=== PATIENT | male | born 1965 | race Caucasian/White ===

== ENCOUNTER 2019-12-03 17:09 | Emergency (ER) | payer OTHER, SELFPAY ==
--- NOTE | ~2019-12-03 | XR_ITS ---
EXAMINATION: XR foot RT min 3V EXAM DATE: 12/03/2019 18:23 INDICATION: Initial encounter following injury, with pain of the right foot. TECHNIQUE: Right foot dorsoplantar, lateral and oblique projections obtained and reviewed. There is no prior study for comparison. FINDINGS: There is acute closed posttraumatic nondisplaced transverse fracture through the right third proximal phalangeal shaft. There is also probable acute closed posttraumatic nondisplaced fracture through the base of the first proximal phalanx into the metatarsophalangeal joint. Both of these findings have been indicated on e xam. Right metatarsal bones unremarkable. There is mild first metatarsophalangeal primary osteoarthritis and mild hallux valgus. IMPRESSION: 1. Acute right third proximal phalangeal shaft fracture. 2. Probable acute first proximal phalangeal intra-articular fracture. Reviewed, dictated and finalized at location A.
[2019-12-03 17:15] VITALS: BP 114/81; PULSE 90; RESP 18; TEMP 37.2; O2SAT 98
--- NOTE | 2019-12-03 18:10 | ED.LOWEXIN ---
HPI - Extremity Injury (Lower) General Chief Complaint: Extremity Injury, Lower <Jodee Phelan PA-C - Last Filed: 12/03/19 19:09> Stated Complaint: R foot injury <KATRINA Fan Last Filed: 12/03/19 19:09> Time Seen by Provider: 12/03/19 17:42 <KATRINA Fan Last Filed: 12/03/19 19:09> Source: patient <KATRINA Fan Last Filed: 12/03/19 19:09> Mode of arrival: ambulatory <KATRINA Fan Last Filed: 12/03/19 19:09> Limitations: no limitations <KATRINA Fan Last Filed: 12/03/19 19:09> History of Present Illness HPI Narrative: This is a 54 year old male that presents to the ER for right foot injury sustained this morning. Reports he got his foot crushed between a metal object at work. Reports he finished the job before coming to be seen. He did take some Ibuprofen prior to arrival. Denies decreased ROM or numbness. <KATRINA Fan Last Filed: 12/03/19 19:09> Related Data Home Medications: Home Medications Medication Instructions Recorded Confirmed cholestyramine (with sugar) DAILY 12/03/19 olanzapine mg DAILY 12/03/19 oxcarbazepine [Trileptal] 150 mg PO BID 12/03/19 sertraline mg DAILY 12/03/19 <KATRINA Fan Last Filed: 12/03/19 19:09> Allergies/Adverse Reactions: Allergies Allergy/AdvReac Type Severity Reaction Status Date / Time No Known Drug Allergies Allergy Unknown Unknown Verified 12/03/19 17:26 <KATRINA Fan Last Filed: 12/03/19 19:09> Review of Systems Review of Systems: Narrative: CONSTITUTIONAL: Denies fever MUSCULOSKELETAL: Reports joint pain, and myalgia. NEUROLOGIC: Denies numbness <KATRINA Fan Last Filed: 12/03/19 19:09> All systems reviewed & are unremarkable except as noted in HPI and below <Jodee Phelan PA-C - Last Filed: 12/03/19 19:09> [facility] Past Medical History Medical History: Medical History (Updated 12/03/19 @ 19:07 by Jodee Phelan PA-C) History of bipolar disorder <Jodee Phelan PA-C - Last Filed: 12/03/19 19:09> Family History Family History: Family History (Updated 11/07/11 @ 13:48 by DOCTOR UNKNOWN) Other Family history of gallbladder disease <Jodee Phelan PA-C - Last Filed: 12/03/19 19:09> Social History Social History: Social History Smoking status: Never smoker Alcohol intake: never Gender identity (if verbalized by the patient): Male <Jodee Phelan PA-C - Last Filed: 12/03/19 19:09> Exam Narrative: Exam Narrative: GENERAL: Well-appearing, well-nourished, and in no acute distress. HEAD: Normocephalic, atraumatic. EYES: EOMI. EXTREMITIES: Normal range of motion. Moderate edema and bruising to the right forefoot including the toes. Normal DP pulses, normal sensation SKIN: Warm, dry, no rash. NEURO: No focal deficits. Alert and oriented x3. PSYCH: Normal mood and affect <Jodee Phelan PA-C - Last Filed: 12/03/19 19:09> Course Vital Signs Vital signs: Vital Signs Temperature 99 F 12/03/19 17:15 Pulse Rate 90 12/03/19 17:15 Respiratory Rate 18 12/03/19 17:15 Blood Pressure 114/81 12/03/19 17:15 Pulse Oximetry 98 12/03/19 17:15 Temperature 99 F 12/03/19 17:15 Pulse Rate 90 12/03/19 17:15 Respiratory Rate 18 12/03/19 17:15 Blood Pressure 114/81 12/03/19 17:15 Pulse Oximetry 98 12/03/19 17:15 <Jodee Phelan PA-C - Last Filed: 12/03/19 19:09> Vital Signs Temperature 99 F 12/03/19 17:15 Pulse Rate 90 12/03/19 17:15 Respiratory Rate 18 12/03/19 17:15 Blood Pressure 114/81 12/03/19 17:15 Pulse Oximetry 98 12/03/19 17:15 Temperature 99 F 12/03/19 17:15 Pulse Rate 90 12/03/19 17:15 Respiratory Rate 18 12/03/19 17:15 Blood Pressure 114/81 12/03/19 17:15 Pulse Oximetry 98 12/03/19 17:15 <Rosa Toledo MD - Last Filed: 12/03/19 20:02> MDM - Extremity Injury (Lower)
== END 2019-12-03 19:35 | disposition home or self-care (01) ==
PROVIDERS: Emergency Provider Emergency Medicine; PCP Internal Medicine
DX: S92.501A Displaced unspecified fracture of right lesser toe(s), initial encounter for closed fracture (principal); S92.414A Nondisplaced fracture of proximal phalanx of right great toe, initial encounter for closed fracture; F31.9 Bipolar disorder, unspecified; W23.0XXA Caught, crushed, jammed, or pinched between moving objects, initial encounter
CPT/HCPCS: 73630; 99284

== ENCOUNTER 2020-10-14 08:36 | Emergency (ER) | payer OTHER, SELFPAY ==
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
[2020-10-14 08:47] VITALS: BP 116/77; PULSE 55; RESP 20; TEMP 36.4; O2SAT 100
== END 2020-10-14 09:32 | disposition home or self-care (01) ==
PROVIDERS: Emergency Provider Nurse Practitioner; PCP Internal Medicine
DX: M25.462 Effusion, left knee (principal); S81.032A Puncture wound without foreign body, left knee, initial encounter; V18.4XXA Pedal cycle driver injured in noncollision transport accident in traffic accident, initial encounter; F31.9 Bipolar disorder, unspecified
CPT/HCPCS: 73562; 99213; G0463

== ENCOUNTER 2021-07-13 18:46 | Emergency (ER) | payer OTHER, SELFPAY ==
--- NOTE | ~2021-07-13 | XR_ITS ---
EXAMINATION: XR chest 1V portable DATE: 07/13/2021 19:03 INDICATION: Cough and shortness of breath TECHNIQUE: frontal view of the chest was obtained. COMPARISON: Chest radiograph dated 01/23/2016 FINDINGS: The lungs remain clear with no focal airspace opacities, pulmonary edema, pleural effusion or pneumot horax. The cardiomediastinal silhouette is normal. Visualized bones and soft tissues are unremarkable . IMPRESSION: 1. No acute cardiopulmonary disease. Reviewed, dictated and finalized at location H. [employer]
[2021-07-13 18:47] VITALS: BP 117/72; PULSE 93; RESP 18; TEMP 36.6; O2SAT 98
[2021-07-13 19:31] LABS: Basophils Absolute Auto 0.1 K/mm3 (0.0-0.1); Basophils Percent Auto 0.8 % (0.2-1.2); Eosinophils Absolute Auto 0.3 K/mm3 (0-0.3); Eosinophils Percent Auto 5.3 % (0-4.4); Hematocrit 39.3 % (42.0-52.0); Hemoglobin 13.4 g/dL (14.0-18.0); Immature Granulocyte Absolute 0.01 K/mm3 (0.00-0.031); Immature Granulocyte Percent A 0.2 % (0-0.5); Lymphocytes Absolute Auto 0.69 K/mm3 (0.9-3.2); Lymphocytes Percent Auto 10.8 % (18.3-44.2); Mean Corpuscular HGB Conc 34.1 g/dl (32-36); Mean Corpuscular Hemoglobin 31.1 pg (26-34); Mean Corpuscular Volume 91.2 fl (80-100); Mean Platelet Volume 8.2 fl (7.4-10.4); Monocytes Absolute Auto 0.6 K/mm3 (0.1-0.6); Neutrophils Absolute Auto 4.7 K/mm3 (1.3-6.7); Neutrophils Percent Auto 72.9 % (45.5-73.1); Platelet Count Result 183 k/mm3 (150-375); Red Blood Count 4.31 M/mm3 (4.6-6.20); Red Cell Distribution Width 12.7 % (11.5-14.5); White Blood Count 6.4 K/mm3 (4.5-10.0)
--- NOTE | 2021-07-13 19:41 | ED.GENADULT ---
HPI - General Adult General Chief complaint: Upper Respiratory Infection Stated complaint: nasal and chest congestion Time Seen by Provider: 07/13/21 19:02 Source: patient and RN notes reviewed History of Present Illness HPI narrative: Patient is a 56 y/o male complaining of nasal congestion and cough since 2 days. He is coughing up some mucous. He has wheezing sometimes. He states that he took Robitussin DM, which helps with his symptoms. He has no fever or chill. He has some bodyache. Related Data Home Medications Medication Instructions Recorded Confirmed cholestyramine (with sugar) DAILY 12/03/19 12/01/20 olanzapine mg DAILY 12/03/19 12/01/20 oxcarbazepine [Trileptal] 150 mg PO BID 12/03/19 12/01/20 sertraline mg DAILY 12/03/19 12/01/20 Allergies Allergy/AdvReac Type Severity Reaction Status Date / Time No Known Drug Allergies Allergy Unknown Unknown Verified 12/03/19 17:26 Review of Systems Constitutional: Constitutional: Denies chills, Denies fever(s), Denies headache(s) and Denies weakness Eyes: Eyes: Denies blurry vision ENT: Denies headache(s), Reports nasal congestion, Reports nasal discharge and Denies neck pain Cardiovascular: Cardiovascular: Denies chest pain and Denies dyspnea Respiratory: Respiratory: Reports cough and Denies dyspnea Gastrointestinal: Gastrointestinal: Denies abdominal pain, Denies diarrhea, Denies nausea and Denies vomiting Genitourinary: Genitourinary: Denies hematuria and Denies dysuria Musculoskeletal: Musculoskeletal: Denies back pain, Reports myalgias and Denies neck pain Neurologic: Denies headache(s) and Denies weakness [facility] Past Medical History Medical History BMI 24.0-24.9, adult History of bipolar disorder Surgical History Surgical History Hx of cholecystectomy 2012 Tibia fracture 2014-[facility] Family History Family History Mother Cancer Other Family history of gallbladder disease Social History Social History Smoking status: Never smoker Alcohol intake: current Additional living arrangements comments: -Lisha Additional occupation/education comments: [employer] Gender identity (if verbalized by the patient): Male Exam Const: General: no acute distress and well developed Orientation/consciousness: oriented to person, oriented to place, oriented to time and patient oriented x3 HENMT: Head: normocephalic Ears: external ears normal General nose exam: Normal external nose present Eyes: General: appearance normal, both eyes and all related structures Conjunctivae: conjunctivae normal Neck: Neck: normal visual inspection and full ROM Chest: Chest palpation & inspection: normal inspection of the chest and no tenderness Resp: Effort & Inspection: normal respiratory effort Auscultation: clear to auscultation bilaterally Cardio: Rate: regular rate Rhythm: regular rhythm GI: GI Palp: No abdominal tenderness and Yes Soft to palpation Skin: General skin exam: normal color and turgor normal Neuro: General: oriented to person, oriented to place, oriented to time and patient oriented x3 Cognition (Neuro): normal cognition Extrem: General: normal to inspection, full ROM and no pedal edema Psych: Appearance: grossly normal Mental Status: mental status grossly normal Affect: normal affect Course Vital Signs Vital signs: Vital Signs Temperature 36.6 C 07/13/21 18:47 Pulse Rate 93 07/13/21 18:47 Respiratory Rate 18 07/13/21 18:47 Blood Pressure 117/72 07/13/21 18:47 Pulse Oximetry 98 07/13/21 18:47 Temperature 36.6 C 07/13/21 18:47 Pulse Rate 93 07/13/21 18:47 Respiratory Rate 18 07/13/21 18:47 Blood Pressure 117/72 07/13/21 18:47 Pulse Oximetry 98 07/13/21 18:47
[2021-07-13 19:46] LABS: Alanine Aminotransferase 23 U/L (4-50); Albumin Level 4.5 g/dL (3.5-5.1); Alkaline Phosphatase 68 U/L (38-126); Anion Gap 8 mmol/L (8-16); Aspartate Amino Transferase 36 U/L (17-59); Bilirubin,Total 0.5 mg/dL (0.2-1.3); Blood Urea Nitrogen 12 mg/dL (9-20); Calcium 9.1 mg/dL (8.4-10.2); Carbon Dioxide 24 mmol/L (22-30); Chloride 101 mmol/L (98-107); Estimated CRCL calculation 84 ml/min; Estimated Glomerular Filt Rate > 60; Glucose 111 mg/dL (65-110); Potassium 4.2 mmol/L (3.4-5.0); Sodium 133 mmol/L (137-145)
[2021-07-14 02:05] LABS: SARS-CoV-2 RNA PCR Negative
== END 2021-07-13 20:41 | disposition home or self-care (01) ==
PROVIDERS: Emergency Provider Emergency Medicine; PCP Internal Medicine
DX: J06.9 Acute upper respiratory infection, unspecified (principal); Z20.822 Contact with and (suspected) exposure to COVID-19; F31.9 Bipolar disorder, unspecified
CPT/HCPCS: 36415; 71045; 80053; 85025; 87804; 99283; C9803; U0003; U0005

== ENCOUNTER 2021-10-08 14:02 | Emergency (ER) | payer OTHER, SELFPAY ==
[2021-10-08 14:15] VITALS: BP 105/74; PULSE 64; RESP 16; TEMP 36.4; O2SAT 98
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
== END 2021-10-08 15:06 | disposition home or self-care (01) ==
PROVIDERS: Emergency Provider Registered Nurse; PCP Internal Medicine
DX: S81.801A Unspecified open wound, right lower leg, initial encounter (principal); V18.4XXA Pedal cycle driver injured in noncollision transport accident in traffic accident, initial encounter; F31.9 Bipolar disorder, unspecified
CPT/HCPCS: 99213; G0463

== ENCOUNTER 2025-02-25 16:57 | Emergency (ER) | payer BC, SELFPAY ==
[2025-02-25] VITALS (21 sets, daily range): BP systolic 111–136; BP diastolic 67–110; PULSE 52–115; RESP 10–25; TEMP 36.6; O2SAT 96–100
--- NOTE | ~2025-02-25 | XR_ITS ---
CHEST RADIOGRAPH CLINICAL HISTORY: palpitations . COMPARISON: 07/13/2021 TECHNIQUE: Single portable view of the chest. FINDINGS The cardiomediastinal silhouette is unremarkable. The lungs are clear. IMPRESSION: No focal infiltrate or effusion. Reviewed, dictated and finalized at location A.
--- NOTE | 2025-02-25 16:59 | ECG_ITS ---
Test Date: 2025-02-25 17:03:57 Measurements Intervals Perry Rate: 99 P: 0 VT: 0 QRS: 63 QRSD: 111 T: 44 QT: 351 QTc: 450 Interpretive Statements ATRIAL FIBRILLATION INCOMPLETE RIGHT BUNDLE BRANCH BLOCK BASELINE ARTIFACT- II, III, AVR, AVL, AVF, V1 ABNORMAL ECG No previous ECG available for comparison Electronically Signed On 02-25-2025 17:35:30 CDT by Alexandro Luong D.O.
[2025-02-25 17:29] LABS: Hematocrit 37.4 % (42.0-52.0); Hemoglobin 12.8 g/dL (14.0-18.0); Immature Granulocyte Percent A 0.2 % (0-0.5); Lymphocytes Absolute Auto 0.81 K/mm3 (0.9-3.2); Mean Corpuscular HGB Conc 34.2 g/dl (32-36); Mean Corpuscular Hemoglobin 29.9 pg (26-34); Mean Corpuscular Volume 87.4 fl (80-100); Nucleated Red Blood Cells Absolute Auto 0.000 K/mm3 (0.0-0.012); Nucleated Red Blood Cells Perc 0.0 % (0.0-0.2); Platelet Count Result 171 k/mm3 (150-375); Red Blood Count 4.28 M/mm3 (4.6-6.20); White Blood Count 4.9 K/mm3 (4.5-10.0)
[2025-02-25 17:44] LABS: Alanine Aminotransferase 23 U/L (6-50); Albumin Level 4.5 g/dL (3.5-5.1); Alkaline Phosphatase 94 U/L (38-126); Anion Gap 7 mmol/L (4-12); Aspartate Amino Transferase 35 U/L (17-59); Bilirubin,Total 0.6 mg/dL (0.2-1.3); Blood Urea Nitrogen 20 mg/dL (9-20); Calcium 9.3 mg/dL (8.4-10.2); Carbon Dioxide 23 mmol/L (22-30); Chloride 103 mmol/L (98-107); Estimated CRCL calculation 102 ml/min; Estimated Glomerular Filt Rate > 60; Glucose 122 mg/dL (65-110); INR 1.2; Lipase 66 U/L (23-300); Potassium 3.7 mmol/L (3.4-5.0); Prothrombin Time 15.3 Seconds (11.1-14.7); Sodium 133 mmol/L (137-145); Total Protein 7.2 g/dL (6.3-8.2)
[2025-02-25 17:45] LABS: Partial Thromboplastin Time 28.7 Seconds (22.3-36.8)
[2025-02-25 17:54] LABS: Troponin I < 0.012 ng/mL (0.000-0.034)
--- NOTE | 2025-02-25 19:03 | ED_ITS ---
HPI - Arrhythmia/Palpitations General Chief Complaint: Arrhythmia/Palpitations Stated Complaint: afib Time Seen by Provider: 02/25/25 18:20 History of Present Illness HPI narrative: 59-year-old male with a history of bipolar disorder and recent diagnosis of AFib presents to the emergency department for palpitations that occurred around 3:30 p.m.. Patient states he was driving his car when he began to feel his heart ?beating out of my chest?, tingling throughout his body, lightheaded and the sensation that he might pass out. Patient is unsure if he fully lost consciousness but does believe he was nodding off. He pulled over the car and contacted 911. Upon PD and EMS arrival patient had multiple EKGs performed which showed AFib with RVR with rate between 127 to 137bpm. The patient denies any associated chest pain or shortness of breath. During my evaluation the patient states his symptoms have resolved. He is found to be in NSR with rates of 60-70bpm on the cardiac care nurse. He notes he was recently diagnosed with AFib on an EKG that was obtained prior to a endoscopy a couple weeks ago. He was referred to his PCP and had an outpatient Holter monitor which reportedly showed that the patient was in AFib 47% of the time and had heart rates ranging from 37 bpm to 188 bpm. The patient states he had a similar episode of palpitations previously and believes that his symptoms are exacerbated after he uses marijuana. He does state that he use marijuana just prior to symptoms starting today. He notes that he drinks 2 cups of coffee a day. The patient notes her is an avid biker and very active. States his heart rate normally 50-60 beats per minute. He denies other cardiac history. The patient is not on any rate control medications but just started Eliquis prescribed by his PCP today. He is scheduled to see a grinder chipper, Dr. Godinez, in 2 weeks. Related Data Home Medications ?Medication ?Instructions ?Recorded ?Confirmed ?Last Taken ?Type cholestyramine (with sugar) 4 gram DAILY 12/03/19 10/18/22 Unknown History powder for susp in a packet olanzapine 2.5 mg tablet mg DAILY 12/03/19 10/18/22 Unknown History oxcarbazepine 150 mg tablet 150 mg PO BID 12/03/19 10/18/22 Unknown History (Trileptal) sertraline 100 mg tablet mg DAILY 12/03/19 10/18/22 Unknown History Allergies Allergy/AdvReac Type Severity Reaction Status Date / Time No Known Drug Allergies Allergy Unknown Unknown Verified 02/25/25 17:06 Review of Systems 2 Review of Systems: All systems reviewed & are unremarkable except as noted in HPI and below PMFSH Past Medical History Medical History Impingement syndrome, shoulder, left 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 BMI 24.0-24.9, adult History of bipolar disorder Surgical History Surgical History Tibia fracture 2015-[facility] Hx of cholecystectomy 2012 Family History Family History Mother Cancer Other Family history of gallbladder disease Social History Social History Smoking status: Never smoker Alcohol intake: current Living arrangements: with family Additional living arrangements comments: -Lisha Occupation/Education: occupation Additional occupation/education comments: [employer] Gender identity (if verbalized by the patient): Male Exam 2 Narrative: GENERAL: Well-appearing, well-nourished, and in no acute distress. HEAD: Normocephalic, atraumatic. EYES: EOMI. ENT: Nares clear, no rhinorrhea or epistaxis. Mucous membranes moist. NECK: Supple. CHEST: Clear to auscultation. No respiratory distress. HEART: Regular rate and rhythm. No murmur heard. Normal peripheral pulses. Pt in NSR with HR between 60-70bpm ABDOMEN: Soft, nontender, nondistended, normal active bowel sounds. EXTREMITIES: Normal range of motion. No edema. SKIN: Warm, dry, no rash. NEURO: No focal deficits. Alert and oriented x3 Course Vital Signs Vital signs: Vital Signs Temperature 97.9 F 02/25/25 17:03 Pulse Rate 94 02/25/25 17:03 Respiratory Rate 18 02/25/25 17:03 Blood Pressure 136/110 H 02/25/25 17:03 Pulse Oximetry 99 02/25/25 17:03 Oxygen Delivery Room Air 02/25/25 17:03 Temperature 97.9 F 02/25/25 17:03 Pulse Rate 115 H 02/25/25 20:18 Respiratory Rate 19 02/25/25 18:03 Blood Pressure 119/86 02/25/25 18:03 Pulse Oximetry 98 02/25/25 18:03 Oxygen Delivery Room Air 02/25/25 17:03 MDM - Arrhythmia/Palpitations MDM Narrative Medical decision making narrative: 59-year-old male with a history of bipolar disorder and recent diagnosis of AFib presents to the emergency department for an episode of palpitations, lightheadedness and presyncope. Patient contacted EMS and several EKGs performed which revealed AFib with RVR with rates between 127-135bpms. Upon arrival she the emergency department patient's EKG shows atrial fibrillation with a rate of 99 beats per minute with no ST elevations or depressions. On my evaluation the patient states his symptoms have resolved. It is noted on the cardiac care nurse the patient is in normal sinus rhythm with rates between 60-70 bpm. Patient's CBC shows no leukocytosis. Hemoglobin is 12.8, most prior hemoglobin in 2020 was 13.4. Chemistries are unremarkable with no significant electrolyte derangements. Magnesium normal. Chest x-ray shows no focal infiltrate or effusion. Troponin x2 is undetectable. Patient went back into AFib with RVR with a rate in the 130s. I did contact Cardiology, Dr. Bullard, who advise 5 mg of IV metoprolol and if patient's rate improves, can discharged home with metoprolol tartrate 50 mg b.i.d. for home with close follow-up outpatient in their office. Pt was given 5 mg IV metoprolol and a L of fluids. He did become rate controlled. He remains in AFib/a flutter with rates in the 60s bpm. BP remains stable. On re-evaluation he states he feels much better and that sx have resolved.Shared decision making regarding disposition. I did discuss admission for observation given history of unstable arrhythmia and syncopal/near syncopal event. Patient declines admission and states he wants to go home. I discussed concerns of persistent unstable rhythm including syncope, ischemic CVA, cardiac event etc. Pt reports he understands these risks and would still like to go home. He agrees to f/u closely with the cardiology office. Advised to contact the office tomorrow to schedule close follow-up. Will send metoprolol tartrate 50 mg b.i.d. for home. I discussed strict ED return precautions. Patient and his family at bedside are agreeable with the plan verbalized understanding. Discharged in stable condition. Lab Data 02/25/25 17:23 02/25/25 17:23 Labs: Lab Results 02/25/25 02/25/25 02/25/25 Range/Units 17:23 17:23 19:49 WBC 4.9 (4.5-10.0) K/mm3 RBC 4.28 L (4.6-6.20) M/mm3 Hgb 12.8 L (14.0-18.0) g/dL Hct 37.4 L (42.0-52.0) % MCV 87.4 (80-100) fl MCH 29.9 (26-34) pg MCHC 34.2 (32-36) g/dl RDW 12.8 (11.5-14.5) % Plt Count 171 (150-375) k/mm3 MPV 8.2 (7.4-10.4) fl Immature Gran % (Auto) 0.2 (0-0.5) % Neut % (Auto) 70.1 (45.5-73.1) % Lymph % (Auto) 16.7 L (18.3-44.2) % [place] % (Auto) 10.1 H (2.6-8.5) % Eos % (Auto) 2.1 (0-4.4) % Baso % (Auto) 0.8 (0.2-1.2) % Lymph # (Auto) 0.81 L (0.9-3.2) K/mm3 [place] # (Auto) 0.5 (0.1-0.6) K/mm3 Eos # (Auto) 0.1 (0-0.3) K/mm3 Baso # (Auto) 0.0 (0.0-0.1) K/mm3 Abs Immat Gran (auto) 0.01 (0.00-0.031) K/mm3 Absolute Neuts (auto) 3.4 (1.3-6.7) K/mm3 Absolute Nucleated RBC 0.000 (0.0-0.012) K/mm3 Nucleated RBC % 0.0 (0.0-0.2) % PT 15.3 H (11.1-14.7) Seconds INR 1.2 APTT 28.7 (22.3-36.8) Seconds Sodium 133 L (137-145) mmol/L Potassium 3.7 (3.4-5.0) mmol/L Chloride 103 (98-107) mmol/L Carbon Dioxide 23 (22-30) mmol/L Anion Gap 7 (4-12) mmol/L BUN 20 (9-20) mg/dL Creatinine 0.78 (0.7-1.3) mg/dL Estim Creat Clear Calc 102 ml/min Estimated GFR > 60 (59 - ) Glucose 122 H (65-110) mg/dL Calcium 9.3 (8.4-10.2) mg/dL Magnesium 2.0 2.1 (1.6-2.3) mg/dL Total Bilirubin 0.6 (0.2-1.3) mg/dL AST 35 (17-59) U/L ALT 23 (6-50) U/L Alkaline Phosphatase 94 (38-126) U/L Troponin I < 0.012 < 0.012 (0.000-0.034) ng/mL Total Protein 7.2 (6.3-8.2) g/dL Albumin 4.5 (3.5-5.1) g/dL Lipase 66 (23-300) U/L Discharge Plan Discharge Clinical Impression: Atrial fibrillation with RVR Patient Disposition: Home Condition: Stable Instructions: Antibiotic Form, A-fib (Atrial Fibrillation) (ED) Additional Instructions: Please start taking the metoprolol twice daily along with your Eliquis. Follow- up closely with grinder chipper tomorrow. Return to the emergency department if you develop lightheadedness, loss of consciousness, chest pain, shortness of breath or other concerning symptoms. Patient Language: [place] Prescriptions: New metoprolol tartrate 50 mg tablet 50 mg PO Q12H Qty: 60 0RF No Action oxcarbazepine [Trileptal] 150 mg Tablet 150 mg PO BID sertraline 100 mg tablet DAILY olanzapine 2.5 mg tablet DAILY cholestyramine (with sugar) 4 gram Powder In Packet DAILY Follow-up/Referrals: Rhys Godinez MD [Physician] - PHYSICIAN NOT ON STAFF,NONSTAFF [Primary Care Provider] -
--- OUTSIDE RECORDS SUMMARY | 2025-02-25 19:03 | XMS_ITS | Referral Summary ---
Author Organization [facility] Address [address] [place] [address] Care Team Providers Care Mac Operator Name Role Phone Aditya Nguyen FEEDER CATCHER Primary Care Provider Encounters Date Type Department Care Team Description 02/26/20 25 Telephone [facility] Primary Care at [address] [place] [phone] Aditya Nguyen, LIDA Med Refill 02/26/20 25 Orders Only [facility] Primary Care at [address] [place] [phone] Aditya Nguyen, FEEDER CATCHER 02/25/20 25 Results Follow-Up [facility] Primary Care at [address] [place] [phone] Aditya Nguyen, LIDA [facility] Mobile Cardiac Telemetry Event Monitor 02/25/20 25 Telephone [facility] Primary Care at [address] [place] [address] Aditya Nguyen, LIDA Test Results 02/24/20 25 Orders Only [facility] Gastroenterology at [address] [place] [phone] Michele Mauro, DO 02/22/20 25 Telephone [facility] Gastroenterology at [place] [address] [facility] [address] [place] [phone] Gi Howard LPN 02/21/20 25 Telephone [facility] Primary Care at [address] [place] [phone] Aditya Nguyen, LIDA Medical Question/Miscellaneous 02/19/20 25 Telephone [facility] Primary Care at [address] [place] [phone] Aditya Nguyen, LIDA Medical Question/Miscellaneous 02/14/20 12:47 PM CDT - 02/14/20 11:59 PM CDT Hospital Encounter [facility] Cardiology [address] [place] [address] 1st degree AV block; Irregular heart rhythm Discharge Disposition: Discharge to home or self care 02/08/20 25 Telephone [facility] Primary Care at [address] [phone] Aditya Nguyen, LIDA Medical Question/Miscellaneous 02/07/20 Orders Only [facility] Primary Care at [address] [phone] Aditya Nguyen, LIDA 1st degree AV block; Irregular heart rhythm 02/07/20 11:00 AM CDT Office Visit [facility] Primary Care at [address] [phone] Aditya Nguyen, LIDA Heart block AV first degree (Primary Dx); Eosinophilic esophagitis; Body mass index (BMI) of 23.0 to 23.9 in adult; Hypertension, essential 02/04/20 25 Nurse Triage [facility] [address] [place] [address] [phone] RN 02/04/20 25 Results Follow-Up [facility] Primary Care at [address] [phone] Laquita Hagen, LIDA EGD, ECG 12 lead 02/04/20 12:16 PM CDT Anesthesia Event [address] [address] Tyrone Patterson MD [place], Neal P., WING 02/04/20 12:00 PM CDT - 02/04/20 12:30 PM CDT Surgery [address] [address] Michele Mauro, ESOPHAGOGASTRODUODENOSCOPY BIOPSY 02/04/20 10:44 AM CDT - 02/04/20 1:54 PM CDT Hospital Encounter [address] [address] Michele Mauro, Eosinophilic esophagitis Discharge Disposition: Discharge to home or self care 12/18/19 25 Orders Only [facility] Primary Care at [address] [place] [address] Eleazar Chinchilla MD 11/30/19 25 Telephone [facility] Primary Care at [address] [place] [address] Eleazar Chinchilla MD Med Refill 11/26/19 25 Telephone [facility] Medical [facility] Gastroenterology at [address] [place] [address] Nelda Wade from Last 3 Months Allergies No known active allergies Medications sertraline (ZOLOFT) 100 mg tablet take 1 tablet (100MG) by oral route every day 0 2 Active OXcarbazepine (TRILEPTAL) 300 mg tablet take 1 tablet (300MG) by oral route 2 times every day 0 2 Active OLANZapine (ZyPREXA) 2.5 mg tablet take 2 tablet (5MG) by oral route every day 0 2 Active fluticasone propionate (FLONASE) 50 mcg/actuation nasal spray Administer 1 spray into each nostril daily Active omeprazole (PriLOSEC) 40 mg capsule Take 1 capsule (40 mg total) by mouth 2 (two) times a day before breakfast and dinner 180 capsule 3 5 02/24/20 26 Active apixaban (ELIQUIS) 5 mg tablet Take 1 tablet (5 mg total) by mouth 2 (two) times a day 60 tablet 5 Active omeprazole (PriLOSEC) 40 mg capsule Take 1 capsule (40 mg total) by mouth daily 90 capsule 3 5 02/24/20 25 Discontinu ed(Nicole hein) Active Problems Problem Noted Date Diagnosed Date Body mass index (BMI) of 23.0 to 23.9 in adult 0 02/06/2025 Assessment & Plan (02/06/2025 5:11 PM CDT): Wt Readings from Last 3 Encounters: 02/06/25 82.6 kg (182 lb 1.6 oz) 02/03/25 86.2 kg (190 lb) 10/07/24 85.2 kg (187 lb 14.4 oz) Body mass index is 23.37 kg/m . -Stable, at goal of <30 bmi -Discussed recommendations for exercise at least 30 minutes moderate to vigorous exercise as tolerated most days of the week. (minimum 150 minutes weekly) -Discussed importance of well-balanced diet Normocytic anemia 10/07/2024 Assessment & Plan (10/07/2024 2:00 PM CDT): Lab Results Component Value Date WBC 4.2 10/02/2024 HGB 13.1 (L) 10/02/2024 HCT 39.1 10/02/2024 MCV 90.7 10/02/2024 LABPLAT 229 10/02/2024 Stable Slightly improved from last year Could be 2/2 to hemorrhoids Denies any bleeding Did have an EGD done recently Eosinophilic esophagitis 09/16/2024 Assessment & Plan (02/06/2025 5:11 PM CDT): -chronic, controlled -patient currently takes omeprazole 40 mg daily -Follows with GI -Patient recently underwent EGD which was noted patient to have eosinophilic esophagitis -patient encouraged to continue avoiding trigger foods and remaining upright at least 30 minutes after eating or drinking -Encouraged patient to reach out to GI provider to see if they have any further recommendations for his esophagitis -continue current treatment plan Upper abdominal pain 04/15/2024 Dyspepsia 04/15/2024 Physical exam, annual 10/03/2022 Assessment & Plan (10/07/2024 1:59 PM CDT): Discussed lifestyle modifications, diet and exercise. Routine blood work ordered/reviewed today. Yearly vision and dental examinations. Assessment & Plan (10/05/2023 3:10 PM CDT): Discussed lifestyle modifications, diet and exercise. Routine blood work ordered/reviewed today. Yearly vision and dental examinations. Assessment & Plan (10/03/2022 3:35 PM CDT): Discussed lifestyle modifications, diet and exercise. Routine blood work ordered/reviewed today. Yearly vision and dental examinations. 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): Good response to questran Titrate dose and return prn Family history of colon cancer 07/12/2022 Overview (07/12/2022): Added automatically from request for surgery [id number] Mixed hyperlipidemia 09/13/2017 Assessment & Plan (10/07/2024 2:02 PM CDT): Lab Results Component Value Date CHOL 172 10/02/2024 CHOL 163 10/05/2023 CHOL 233 (H) 09/13/2021 Lab Results Component Value Date HDL 62 10/02/2024 HDL 43 10/05/2023 HDL 75 09/13/2021 Lab Results Component Value Date LDLCALC 91 10/05/2023 LDLCALC 129 09/04/2019 LDLCALC 126 09/03/2018 LDL 94 10/02/2024 LDL 128 (H) 09/13/2021 LDL 143 (H) 09/15/2020 Lab Results Component Value Date TRIG 71 10/02/2024 TRIG 144 10/05/2023 TRIG 187 (H) 09/13/2021 No results found for: POCCHDLR No results found for: POCNONHDL No results found for: POCCHLPL At goal at this time Continue current regimen Yassine, I have reviewed your lab results. We use these results to calculate your ASCVD risk score. This score is based on factors such as your age, gender, race, blood pressure, smoking history, diabetes status, and cholesterol. The ASCVD risk score estimates your risk of having a heart attack or stroke in the next 10 years. The 10-year ASCVD risk score (Adelia SULLIVAN, et al., 2019) is: 4.1% Assessment & Plan (10/05/2023 3:09 PM CDT): Lab Results Component Value Date CHOL 233 (H) 09/13/2021 CHOL 231 (H) 09/15/2020 CHOL 215 (H) 09/04/2019 Lab Results Component Value Date HDL 75 09/13/2021 HDL 59 09/15/2020 HDL 61 09/04/2019 Lab Results Component Value Date LDLCALC 129 09/04/2019 LDLCALC 126 09/03/2018 LDLCALC 182 (H) 08/30/2017 LDL 128 (H) 09/13/2021 LDL 143 (H) 09/15/2020 LDL 126 08/25/2015 Lab Results Component Value Date TRIG 187 (H) 09/13/2021 TRIG 158 (H) 09/15/2020 TRIG 124 09/04/2019 No results found for: POCCHDLR No results found for: POCNONHDL No results found for: POCCHLPL At goal at this time Will recheck lipid panel now Assessment & Plan (10/03/2022 3:35 PM CDT): Lab Results Component Value Date CHOL 233 (H) 09/13/2021 CHOL 231 (H) 09/15/2020 CHOL 215 (H) 09/04/2019 Lab Results Component Value Date HDL 75 09/13/2021 HDL 59 09/15/2020 HDL 61 09/04/2019 Lab Results Component Value Date LDLCALC 129 09/04/2019 LDLCALC 126 09/03/2018 LDLCALC 182 (H) 08/30/2017 LDL 128 (H) 09/13/2021 LDL 143 (H) 09/15/2020 LDL 126 08/25/2015 Lab Results Component Value Date TRIG 187 (H) 09/13/2021 TRIG 158 (H) 09/15/2020 TRIG 124 09/04/2019 No results found for: POCCHDLR No results found for: POCNONHDL No results found for: POCCHLPL At goal at this time Will recheck lipid panel now Diarrhea following gastrointestinal surgery 08/25 Assessment & Plan (07/12/2022 1:15 PM [employer] PORT[employer] DEVELOPER): D 2-10/d Questran in past did help. Possibly ibs or post shin or microscopic.. Questran qid Return with shit list after colooscopy Assessment & Plan (02/21/2022 7:06 PM CDT): Will try to increase cholestyramine use Will get colonoscopy ordered Referral to gi for recommendations Bipolar affective disorder 12/07/2013 Overview (10/26/2016): Bipolar affective Assessment & Plan (10/07/2024 2:04 PM CDT): Following with psychiatry C/w sertraline 100 mg, olanzpine 2.5 mg, oxcarbazepine 300 mg every day Stable and goal Assessment & Plan (10/05/2023 3:09 PM CDT): Following with psychiatry C/w sertraline 100 mg, olanzpine 2.5 mg, oxcarbazepine 300 mg every day Stable and goal Assessment & Plan (10/03/2022 3:34 PM CDT): Following with psychiatry C/w sertraline 100 mg, olanzpine 2.5 mg, oxcarbazepine 300 mg every day Stable and goal Resolved Problems Problem Noted Date Diagnosed Date Resolved Date Tibial plateau fracture, lef t, closed, initial encounter 11/03/2014 09/18/2019 Multiple-type hyperlipidemia 12/07/2013 09/13/2017 Overview (10/27/2016): MIXED HYPERLIPIDEMIA Decreased testosterone level 09/06/2013 09/13/2017 Overview (10/26/2016): Low testosterone Immunizations Immunization Administration Dates Next Due Influenza, Unspecified 10/07/2024(Deferr ed: Patient Refused),10/05/2023(Deferred: Patient Refused),04/24/2022(Deferred: Patient Refused),09/27/2021(Deferred: Patient Refused),07/24/2021(Deferred: Patient Refused),02/21/2021(Deferred: Patient Refused),09/21/2020(Deferred: Patient Refused),07/01/2020(Deferred: Patient Refused),09/18/2019(Deferred: Patient Refused),08/05/2019(Deferred: Patient ill today),04/23/2019(Deferred: Patient Refused),09/17/2018(Deferred: Patient Refused),08/08/2018(Deferred: Patient ill today) Tdap 10/22/2014,04/09/2014 ZOSTER LIVE 09/08/2015 ZOSTER Recombinant 02/21/2022,09/27/2021 Social History Tobacco Use Types Packs/Day Years Used Date Smoking Tobacco: Never Smokeless Tobacco: Never Tobacco Cessation:Counseling Given: Not Answered Alcohol Use Standard Drinks/Week Comments Yes 0 (1 standard drink = 0.6 oz pur e alcohol) AUDIT-C Answer Date Recorded Q1: How often do you have a drink containing alc ohol? Monthly or less 02/06/2025 Q2: How many drinks containi ng alcohol do you have on a typical day when you are drinking? 1 or 2 02/06/2025 Q3: How often do you have si x or more drinks on one occasion? Never 02/06/2025 PHQ-2 Answer Date Recorded PHQ-2 Total Score (If total score is 3 or more points, staff should administer the PHQ-9) 0 02/06/2025 Personal Safety Answer Date Recorded Have you ever been in or are you currently in a harmful physical or emotional relationship or is someone making you feel afraid or unsafe? 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 Gender Identity Not on file Sexual Orientation Not on file Last Filed Vital Signs Vital Sign Reading Time Taken Comments Blood Pressure 117/78 02/06/2025 11:04 AM CDT Pulse 59 02/06/2025 11:04 AM CDT Temperature 36.6 C (97.9 F) 02/03/2025 1:15 PM CDT Respiratory Rate 16 02/06/2025 11:04 AM CDT Oxygen Saturation 98% 02/06/2025 11:04 AM CDT Inhaled Oxygen Concentration - - Weight 82.6 kg (182 lb 1.6 oz) 02/06/2025 11:04 AM CDT Height 188 cm (6' 2.02) 02/06/2025 11:04 AM CDT Body Mass Index 23.37 02/06/2025 11:04 AM CDT Plan of Treatment Not on file Procedures Procedure Name Priority Date/Time Associated Diagnosis Comments MCT - MOBILE CARDIAC TELEMET RY EVENT MONITOR Routine 02/13/2025 12:47 PM CDT 1st degree AV block Irregular heart rhythm ECG 12-LEAD Routine 02/06/2025 11:00 AM CDT Hypertension, essential ECG 12-LEAD Routine 02/03/2025 12:53 PM CDT ESOPHAGOGASTRODUODENOSCOPY BIOPSY 02/03/2025 12:15 PM CDT Eosinophilic esophagitis EGD 02/03/2025 11:03 AM CDT SURGICAL PATHOLOGY STAT 02/03/2025 9:02 AM CDT Eosinophilic esophagitis PSA SCREEN Routine 10/02/2024 10:14 AM CDT COLONOSCOPY 07/15/2022 9:24 AM [employer] DEVELOPER HEPATITIS C SCREENING Routine 01/12/2012 from Last 3 Months or Most Recently Relevant to Health Maintenance Results * MCT Mobile Cardiac Telemetry Event Monitor (02/13/2025 12:47 PM CDT) Anatomical Region Laterality Modality Electrocardiogra phy 02/19/2025 11:5 9 PM CDT Narrative 02/24/2025 10:54 AM CDT [address] [place] [address] EVENT MONITOR Patient Name: RICK FAY L : 1965 Study Date: 02/19/2025 11:59:00 PM Gender: M Tech: Ref Provider: ADITYA NGUYEN Height(Cm): BSA: Weight(Kg): Order Provider: ADITYA NGUYEN PROCEDURES: Event Report: Event Monitor Report. INDICATIONS: I44.0 Atrioventricular block, first degree and I49.9 Cardiac arrhythmia, unspecified. FINDINGS: CONCLUSIONS: 1. Predominant rhythm is normal sinus rhythm with a minimum heart rate of 37 beats per minute in atrial fibrillation and a maximum heart rate of 181 beats per minute also in atrial fib. Atrial fibrillation occurred 47% of the time for a total time of 2 days 15 hours 2 minutes. Atrial fib was controlled 41% of the time, rapid 3% of the time and slow 56% of the time. Sinus rhythm occurred 53% of the time for a total time of 3 days 0 hours 13 minutes. Total monitoring time of 5 days 15 hours 15 minutes. 2. Heart rate and rate variability is appropriate. 3. There were several pauses while in atrial fibrillation and they ranged from 3.1 to 3.8 seconds. All these pauses appeared to be during sleeping hours. Electronically Signed By: Dr Elpidio Romero 02/24/2025 10:06:17 AM CDT Procedure Note Elpidio Romero MD - 02/24/[address] [place] [address] EVENT MONITOR Patient Name: RICK FAY L : 1965 Study Date: 02/19/2025 11:59:00 PM Gender: M Tech: Ref Provider: ADITYA NGUYEN Height(Cm): BSA: Weight(Kg): Order Provider: AIDTYA NGUYEN PROCEDURES: Event Report: Event Monitor Report. INDICATIONS: I44.0 Atrioventricular block, first degree and I49.9 Cardiac arrhythmia,unspecified. FINDINGS: CONCLUSIONS: 1. Predominant rhythm is normal sinus rhythm with a minimum heart rate of37 beats per minute in atrial fibrillation and a maximum heart rate of 181 beats perminute also in atrial fib. Atrial fibrillation occurred 47% of the time for a total time of 2 days 15hours 2 minutes. Atrial fib was controlled 41% of the time, rapid 3% of the time and slow56% of the time. Sinus rhythm occurred 53% of the time for a total time of 3 days 0 hours13 minutes. Total monitoring time of 5 days 15 hours 15 minutes. 2. Heart rate and rate variability is appropriate. 3. There were several pauses while in atrial fibrillation and they rangedfrom 3.1 to 3.8 seconds. All these pauses appeared to be during sleeping hours. Electronically Signed By: Dr Elpidio Romero 02/24/2025 10:06:17 AM CDT Aditya Nguyen NP CV CARDIAC SERVICES PRO CEDURES Final Result * ECG 12 lead (02/06/2025 11:00 AM CDT) 02/06/2025 11:0 0 AM CDT Aditya Nguyen NP ECG ORDERABLES Final R esult * ECG 12 lead (02/03/2025 12:53 PM CDT) 02/03/2025 12:5 3 PM CDT Narrative [facility] - 02/03/2025 3:09 PM CDT Vent Rate: 51 bpm RR Interval: 1174 msec KS Interval: 0 msec QRS Duration: 109 msec QT Interval: 491 msec QTC Interval: 467 msec P-R-T [place]: [address] - 44 - 50 degrees IMPRESSION: ATRIAL FIBRILLATION WITH SLOW VENTRICULAR RESPONSE POSSIBLE INFERIOR MYOCARDIAL INFARCTION , PROBABLY OLD [30 ms Q WAVE IN II/aVF] Peak T-waves. Consider hyperkalemia ABNORMAL RHYTHM ECG Electronically Signed By: Allen Talbot MD us Tyrone Patterson MD ECG ORDERABLES Final Result [facility] * EGD (02/03/2025 11:03 AM CDT) Anatomical Region Laterality Modality Other Narrative Procedure Note Michele Mauro DO - 02/03/2025 11:03 AM CDT [facility] Patient Name: Rick Fay Procedure Date: 02/03/2025 11:03 AM Date of : 1965 Admit Type: Outpatient Age: 59 Gender: Male Attending MD: Michele Mauro , D.O., Room: [facility] ENDOSCOPY ROOM 2 Note Status: Finalized Patient Profile: Refer to note in patient chart for documentation of history and physical. Procedure: Upper GI endoscopy Indications: Follow-up of gastro-esophageal reflux disease, Follow-up of eosinophilic esophagitis Referring MD: Laquita Hagen NP Providers: Michele Mauro D.O. Impression: - Esophageal mucosal changes suggestive of eosinophilic esophagitis. Biopsied. - Small, 3 cm hiatal hernia. - Normal stomach. - Normal examined duodenum. Recommendation: - Await pathology results. - Repeat upper endoscopy (date not yet determined)for surveillance based on pathology results. - Return to primary care physician PRN. Medicines: Monitored Anesthesia Care Complications: No immediate complications. Estimated Blood Loss: Estimated blood loss was minimal. Procedure: Pre-Anesthesia Assessment: - As per anesthesia. The benefits, risks, and alternatives to theprocedure and sedation were discussed and informed consentwas obtained. The scope was passed under direct vision. The Endoscope GIF-H190 [id number] was introduced through the mouth, and advanced to the second partof duodenum. The upper GI endoscopy was accomplished without difficulty. The patient tolerated the procedure well. Findings: Mucosal changes including feline appearance were found in the middle third of the esophagus and in the lower third of the esophagus.Biopsies were taken with a cold forceps for histology. A small, 3 cm hiatal hernia was present. The entire examined stomach was normal. The examined duodenum was normal. Electronically signed by Michele Mauro M.D. Michele Mauro D.O. 02/03/2025 12:44:17 PM Number of Addenda: 0 Note Initiated On: 02/03/2025 11:03 AM Procedure Code(s): --- Professional --- 05653, Esophagogastroduodenoscopy, flexible, transoral; with biopsy, single or multiple --- Technical --- 01653, Esophagogastroduodenoscopy, flexible, transoral; with biopsy, single or multiple Diagnosis Code(s): --- Professional --- K22.89, Other specified disease of esophagus K44.9, Diaphragmatic hernia without obstruction or gangrene K21.9, Gastro-esophageal reflux disease without esophagitis K20.0, Eosinophilic esophagitis --- Technical --- K22.89, Other specified disease of esophagus K44.9, Diaphragmatic hernia without obstruction or gangrene K21.9, Gastro-esophageal reflux disease without esophagitis K20.0, Eosinophilic esophagitis CPT copyright 2022 [employer]. All rights reserved. The codes documented in this report are preliminary and upon operations vocational instructor reviewmay be revised to meet current compliance requirements. Recognized by the [place] [employer] for promoting quality in endoscopy Michele Mauor DO ENDOSCOPY PROCEDURES Final Res ult * Surgical pathology (02/03/2025 9:02 AM CDT) Tissue (Esophageal biopsy) 02/03/2025 12:36 PM CDT Narrative PATHOLOGY [facility] (DOC) - 02/05/2025 10:04 AM CDT EPIC results best viewed via link to PDF [facility] Department of Pathology [address] [place] [address] Note to Patients: This report may contain a detailed description of human tissue sent by a health care provider to the laboratory for pathologic evaluation. The content of this report is essential for diagnosis and may provide important critical findings. This information may be unfamiliar to patients to review without a medical professional present. It is advised that the patient review this report in the presence of a health care provider who can answer questions and explain the details. Final Report Patient Name: RICK FAY Address: [address] [place] [address] Gender: M : 1965 (Age: 59) Service: Gastro Location: [facility] #: [id number] Patient Type: [facility] Taken: 02/03/2025 Received: 02/04/2025 Accessioned: 02/04/2025 Reported: 02/05/2025 Physician(s):Dr. Michele Mauro D.O. Diagnosis: Esophagus, biopsy: - Benign squamous epithelium with focal area of increased intraepithelial eosinophils (up to eight per high-power field). - See microscopic description. Diego Duque M.D. Report Electronically Reviewed and Signed Out By Diego Duque M.D. 02/05/2025 10:04:27 Specimen(s) Received: A: Esophagus Biopsies Microscopic Description: Sections show fragments of benign squamous epithelium. The majority of the fragments show no significant inflammatory infiltrate. Focally, a few of the fragments do appear to be more reactive and shows a a few scattered intraepithelial eosinophils present (up to eight per high-power field). The differential diagnosis includes reflux related changes as well as eosinophilic esophagitis. Clinical and endoscopic correlation is advised. Clinical History: Eosinophilic esophagitis. EGD. Gross Description: The specimen is submitted in a single formalin filled container labeled RICK GLENN and esophagus biopsies. It is 6 freeman tissue fragments between <1 and 1 mm. All in one cassette. Robinson Humphreys R.N., P.A./Latasha Lujan M.D. REPORT IMAGES AND SCANNED DOCUMENTS, IF INCLUDED, ONLY VIEWABLE IN PDF VERSION OF REPORT The performance characteristics of some immunohistochemical stains, fluorescence in-situ hybridization tests and immunophenotyping by flow cytometry cited in this report (if any) were determined by the Surgical Pathology Department at [facility] as part of an ongoing clinical quality manager program and in compliance with federally mandated regulations drawn from the Clinical Laboratory Improvement Act of 1988 (CLIA '88). Some of these tests rely on the use of analyte specific reagents and are subject to specific labeling requirements by the US Food and Drug Administration. Such diagnostic tests may only be performed in a facility that is certified by the Department of Health and Human Services as a high complexity laboratory under CLIA '88. The FDA has determined that such clearance or approval is not necessary. This test is used for clinical purposes. It should not be regarded as investigational or for research. Nevertheless, federal rules concerning the medical use of analyte specific reagents require that the following disclaimer be attached to the report: This test was developed and its performance characteristics determined by the Surgical Pathology Department [facility]. It has not been cleared or approved by the U. S. Food and Drug Administration. Note for decalcified specimens: This assay has not been validated on decalcified tissues. Results should be interpreted with caution given the possibility of false negativity on decalcified specimens us Michele Mauro DO LAB PATHOLOGY ORDERABLES Final Result PATHOLOGY [facility] (DOC) [address] [place] [address] * PSA screen (10/02/2024 10:14 AM CDT) PSA 0.50 < OR = 4.00 ng/mL [facility] Comment: The total PSA value from this assay system is standardized against the WHO standard. The test result will be approximately 20% lower when compared to the equimolar-standardized total PSA (Kalyan Madison). Comparison of serial PSA results should be interpreted with this fact in mind. This test was performed using the Siemens chemiluminescent method. Values obtained from different assay methods cannot be used interchangeably. PSA levels, regardless of value, should not be interpreted as absolute evidence of the presence or absence of disease. 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 Room: [facility] ENDOSCOPY ROOM 2 Note Status: Finalized Patient Profile: Refer to note in patient chart for documentation of history and physical. Procedure: Colonoscopy Indications: Family history of colon cancer in a first-degree relative before age 60 years, Last colonoscopy:September 2016, Chronic diarrhea Referring MD: Yris Foss M.D. Providers: Jon Braun M.D. Impression: - Hemorrhoids found on perianal exam. - The entire examined colon is normal. Biopsied. - The examination was otherwise normal. Recommendation: - Discharge patient to home. - Resume previous diet. - Continue present medications. - Await pathology results. - Repeat colonoscopy in 5 years for surveillance. - Return to primary care physician as previously scheduled. Medicines: Propofol per Anesthesia Complications: No immediate complications. Estimated Blood Loss: Estimated blood loss: none. Procedure: Pre-Anesthesia Assessment: - This assessment was completed [Time ofAssessment] prior to the administration of sedation. The benefits, risks and alternatives of theprocedure and sedation were discussed and informed consentwas obtained. All questions were answered. Please referto the signed informed consent document in the medical record. The bowel preparation used was Miralax via single dose instruction. The bowel preparation used was bisacodyl tablets via single dose instruction.The scope was passed under direct vision. TheColonoscope [id number] was introduced through the anus and advanced to the the cecum, identified by appendiceal orifice and ileocecal valve. The colonoscopy was performed without difficulty. The patient tolerated the procedure well. The qualityof the bowel preparation was excellent. The ileocecal valve, appendiceal orifice, and rectum were photographed. Findings: Hemorrhoids were found on perianal exam. The colon (entire examined portion) appeared normal. Biopsies for histology were taken with a cold forceps from the ascending colon for evaluation of microscopic colitis. Verification of patient identification for the specimen was done by the physician and nurse using the patient's name and date. Estimated blood loss was minimal. The exam was otherwise without abnormality. Electronically signed by Jon Braun M.D. Jon Braun M.D. 07/15/2022 11:08:28 AM Number of Addenda: 0 Note Initiated On: 07/15/2022 9:24 AM Procedure Code(s): --- Professional --- 75886, Colonoscopy, flexible; with biopsy, single or multiple Diagnosis Code(s): --- Professional --- K52.9, Noninfective gastroenteritis and colitis, unspecified Z80.0, Family history of malignant neoplasm of digestive organs K64.9, Unspecified hemorrhoids CPT copyright 2020 [employer]. All rights reserved. The codes documented in this report are preliminary and upon operations vocational instructor reviewmay be revised to meet current compliance requirements. Recognized by the [place] [employer] for promoting quality in endoscopy Jon Braun MD ENDOSCOPY PROCEDURES Final Re sult * HEPATITIS C SCREENING (01/12/2012) HEP C Normal Historical Provider HEALTH MAINTENANCE Final Result from Last 3 Months or Most Recently Relevant to Health Maintenance [place] Advance Directives For more information, please contact: [phone] * Full Code (Latest Code Status on File) Date Activated Date Inactivated Comments 02/03/2025 10:53 AM 02/03/2025 5:59 PM * Full Code Date Activated Date Inactivated Comments 02/03/2025 10:53 AM 02/03/2025 10:53 AM * Full Code Date Activated Date Inactivated Comments 09/09/2024 8:05 AM 09/09/2024 2:16 PM * Full Code Date Activated Date Inactivated Comments 09/09/2024 8:05 AM 09/09/2024 8:05 AM * Full Code Date Activated Date Inactivated Comments 07/15/2022 9:17 AM 07/15/2022 4:10 PM Care Teams Mac Operator Relationship Specialty Start Date End Date Aditya Nguyen, FEEDER CATCHER [address] [place] [address] [address] PCP - General Family Medicine 02/07/25
--- OUTSIDE RECORDS SUMMARY | 2025-02-25 19:04 | XMS_ITS | Encounter Summary ---
Author Organization [facility] Healthcare Address [address] [place] [address] Care Team Providers Care Reptile Farmer Name Role Phone Astrid Hansen CLOTH SPREADER SCREEN PRINTING Primary Care Provider Encounter Details Date Type Department Care Team (Late st Contact Info) Description 02/24/2025 Results Follow-Up [facility] Medical Group Primary Care at [address] [place] [address] Astrid Hansen, LIDA [address] [place] [address] [address] [place] [address] MCT Mobile Cardiac Telemetry Event Monitor Social History Tobacco Use Types Packs/Day Years Used Date Smoking Tobacco: Never Smokeless Tobacco: Never Alcohol Use Standard Drinks/Week Comments Yes 0 [...] on file 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 Pt is aware of results. Pt is agreeable for starting a blood thinner. documented in this encounter Plan of Treatment Not on file documented as of this encounter Visit Diagnoses Not on filedocumented in this encounter Care Teams Reptile Farmer Relationship Specialty Start Date End Date Astrid Hansen NP [address] [place] [address] DR HESS [address] [place] [address] PCP - General Family Medicine 02/07/25 documented as of this encounter
--- OUTSIDE RECORDS SUMMARY | 2025-02-25 19:04 | XMS_ITS | Encounter Summary ---
Author Organization [facility] Healthcare Address [address] [place] [address] Care Team Providers Care Social Media Campaign Manager Name Role Phone Astrid Hansen PRIMING MACHINE OPERATOR Primary Care Provider Reason for Visit * Reason Onset Date Comments Medical Question/Miscellaneous 02/07/2025 Encounter Details Date Type Department Care Team (Late st Contact Info) Description 02/07/2025 Telephone [facility] Medical Group Primary Care at [address] [place] [address] Astrid Hansen, LIDA [address] [place] [address] [address] [place] [address] Medical Question/Miscellaneous Social History Tobacco Use Types Packs/Day Years [...] on file Legal Sex Male 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 Lisha said that she was told by [facility] butch that he could get it sooner if the PCP will reach out to the scheduling department to let them know that they do not have to have pre authorization from their insurance. Does message need to be routed? Yes-Action Needed documented in this encounter Plan of Treatment Not on file documented as of this encounter Visit Diagnoses Not on filedocumented in this encounter Care Teams Social Media Campaign Manager Relationship Specialty Start Date End Date Astrid Hansen NP [address] [place] [address] [address] [place] [address] PCP - General Family Medicine 02/07/25 documented as of this encounter
--- OUTSIDE RECORDS SUMMARY | 2025-02-25 19:04 | XMS_ITS | Encounter Summary ---
Author Organization [facility] Healthcare Address [address] [place] [address] Care Team Providers Care Order Schedule Clerk Name Role Phone Astrid Hansen C D REACTOR OPERATOR Primary Care Provider Reason for Visit * Reason Onset Date Comments Med Refill 02/25/2025 Encounter Details Date Type Department Care Team (Late st Contact Info) Description 02/25/2025 Telephone [facility] Medical Group Primary Care at [address] [place] [address] Astrid Hansen, C D REACTOR OPERATOR [address] [place] [address] [address] [place] [address] Med Refill Social History Tobacco Use Types Packs/Day Years [...] on file 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 New medication Have you had any insurance changes in the last couple months? na How much medication do you have on hand? none Additional Comments: Out of pocket for patient is going to be almost $600 per month. They are needing something less expensive. Does message need to be routed? Yes-Action Needed documented in this encounter Plan of Treatment Not on file documented as of this encounter Visit Diagnoses Not on filedocumented in this encounter Care Teams Order Schedule Clerk Relationship Specialty Start Date End Date Astrid Hansen, C D REACTOR OPERATOR [address] [place] [address] DR HESS [address] [place] [address] PCP - General Family Medicine 02/07/25 documented as of this encounter
--- OUTSIDE RECORDS SUMMARY | 2025-02-25 19:04 | XMS_ITS | Encounter Summary ---
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 Gender Identity Not on file Sexual Orientation Not on file documented as of this encounter Ordered Prescriptions Prescription Sig Dispense Quantity Refills Last Filled Start Date End Date apixaban (ELIQUIS) 5 mg tablet Take 1 tablet (5 mg total) by mouth 2 (two) times a day 60 tablet 02/25/2025 documented in this encounter Plan of Treatment Not on file documented as of this encounter Visit Diagnoses Not on filedocumented in this encounter Care Teams Director Relationship Specialty Start Date End Date Astrid Hansen CHIEF RESOURCE OFFICER [address] [place] [address] DR HESS [address] [place] [address] PCP - General Family Medicine 02/07/25 documented as of this encounter
--- OUTSIDE RECORDS SUMMARY | 2025-02-25 19:04 | XMS_ITS | Encounter Summary ---
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 Gender Identity Not on file Sexual Orientation Not on file documented as of this encounter Miscellaneous Notes * Telephone Encounter - Gi Howard LPN - 02/24/2025 8:31 AM CDT 1st attempt pt picked up the phone and did not respond * Telephone Encounter - Gi Howard LPN - 02/21/2025 2:18 PM CDT Pt spouse Lisha called in for pathology report from previous scope, she stated the pt is still experiencing coughing during meals, abd discomfort , and reflux Please advise documented in this encounter Plan of Treatment Not on file documented as of this encounter Visit Diagnoses Not on filedocumented in this encounter Care Teams Inspector General Relationship Specialty Start Date End Date Astrid Hansen NP [address] [facility] [address] [place] [address] PCP - General Family Medicine 02/07/25 documented as of this encounter
--- OUTSIDE RECORDS SUMMARY | 2025-02-25 19:04 | XMS_ITS | Encounter Summary ---
Author Organization [facility] Healthcare Address [address] [place] [address] Care Team Providers Care Cost And Risk Analysis Manager Name Role Phone Astrid Hansen CELL STRIPPER Primary Care Provider Reason for Visit * Reason Onset Date Comments Test Results 02/24/2025 Encounter Details Date Type Department Care Team (Late st Contact Info) Description 02/24/2025 Telephone [facility] Medical Group Primary Care at [address] [place] [address] Astrid Hansen, CELL STRIPPER [address] [place] [address] [address] [place] [address] Test Results Social History Tobacco Use Types Packs/Day Years [...] on file 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 No Additional Questions/Comments: Results are in. Patient saw results on My Chart and is very upset about what he read. Please call him as soon as possible. There seems to be a lot of A-Fib and he is scared. Does message need to be routed? Yes-Action Needed documented in this encounter Plan of Treatment Not on file documented as of this encounter Visit Diagnoses Not on filedocumented in this encounter Care Teams Cost And Risk Analysis Manager Relationship Specialty Start Date End Date Astrid Hansen CELL STRIPPER [address] [place] [address] DR HESS [address] [place] [address] PCP - General Family Medicine 02/07/25 documented as of this encounter
--- OUTSIDE RECORDS SUMMARY | 2025-02-25 19:04 | XMS_ITS | Clinical Summary ---
Author Organization [facility] Address [address] [place] [address] Care Team Providers Care Transition Rn Name Role Phone Chito Arreola MD Primary Care Provider Unavail able Chito Arreola MD Unavailable Unavailable Source Comments [facility],non-owned Affiliates and Associated Physician Practices is amultiple site organization consisting of ambulatory clinics and hospital sitesin [place], [place], [place] and [place]. This disclosure is being madepursuant to the Care Everywhere program and may not contain all information available regarding this patient. Last updated 18.[facility] Allergies No known active allergies Medications * Be aware that medications may not be up to date on this document. Alwaysverify current medications with the patient. OXCARBAZEPINE ER PO Active SERTRALINE HCL PO Active OLANZAPINE PO Active predniSONE (DELTASONE) 20 MG tabletIndication s:Contact dermatitis due to plants, except food, unspecified contact dermatitis type Take 1 tablet by mouth 2 times daily 14 tablet 8 Active predniSONE (DELTASONE) 20 MG tablet Take 1 tablet by mouth as directed Take 3tabs by mouth once daily for 3days, 2tabs for 3 days, 1tab for 3 days, 1/2 tab for 4days 20 tablet 9 Active triamcinolone acetonide (KENALOG) 0.1 % cream Apply to affected area 2 times daily Do not use on face, neck, or groin 80 g 9 Active Active Problems Problem Noted Date Diagnosed Date 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 Closed displaced bicondylar fracture of tibia Closed displaced bicondylar fracture of left tib ia 11/03/2014 Social History Tobacco Use Types Packs/Day Years Used Date Smoking Tobacco: Never Smokeless Tobacco: Never Alcohol Use Standard Drinks/Week Comments Yes 0 (1 standard drink = 0.6 oz pur e alcohol) Sex and Gender Information Value Date Recorded Sex Assigned at Not on file Legal Sex Male 3:05 PM CDT Gender Identity Not on file Sexual Orientation Not on file Last Filed Vital Signs Vital Sign Reading Time Taken Comments Blood Pressure 112/74 04/02/2019 2:01 PM CDT Pulse 87 04/02/2019 2:01 PM CDT Temperature 36.4 C (97.5 F) 04/02/2019 2:01 PM CDT Respiratory Rate 17 04/02/2019 2:01 PM CDT Oxygen Saturation 97% 12/30/2017 3:17 PM CDT Inhaled Oxygen Concentration - - Weight 90.7 kg (200 lb) 04/02/2019 2:01 PM CDT Height 188 cm (6' 2.02) 04/02/2019 2:01 PM CDT Body Mass Index 25.67 04/02/2019 2:01 PM CDT Plan of Treatment Health Maintenance Due Date Last Done Comments COLOGUARD (AGES 45-75) - COLON CA SCREENING 1965 COLON MONITORING 1965 COLONOSCOPY - COLON CA SCREENING 1965 CT COLONOGRAPHY - COLON CA SCREENING 1965 Colorectal Cancer Screening 1965 FIT - COLON CA SCREENING 1965 FLEX SIG - COLON CA SCREENING 1965 LIPID TESTING 1965 HIV SCREENING 1979 HEPATITIS C SCREENING 04/28/1982 DTAP/TDAP/TD VACCINES (1 - Tdap) 1983 PNEUMOCOCCAL VACCINE 50+ (1 of 1 - PCV) 2014 ZOSTER VACCINE (1 of 2) 2014 SCREENING FOR DIABETES 04/02/2019 5, 11/18/2014, 11/17/2014, Additional history exists COVID-19 VACCINE (1 - 2023- season) 2024 DEPRESSION SCREENING 07/24/2024 INFLUENZA VACCINE (#1) 2025 Respiratory Syncytial Virus (RSV) Vaccine Pt: or over 60 yrs (1 - 1-dose 75+ series) 2039 HEPATITIS B VACCINE Aged Out No longe r eligible based on patient's age to complete this topic HIB VACCINE Aged Out No longer eligi ble based on patient's age to complete this topic HPV VACCINE Aged Out No longer eligi ble based on patient's age to complete this topic MENINGOCOCCAL (Group B) VACCINE SHARED DECISION-MAKING Aged Out No longer eligible based on patient's age to complete this topic MENINGOCOCCAL GROUPS A/C/Y/W VACCINE Aged Out No longer eligible based on patient's age to complete this topic Procedures Procedure Name Priority Date/Time Associated Diagnosis Comments BASIC METABOLIC PANEL (CALCIUM TOTAL) STAT 11/20/2014 12:17 PM CDT from Last 3 Months or Most Recently Relevant to Health Maintenance Results * (ABNORMAL) BASIC METABOLIC PANEL (CALCIUM TOTAL) (11/20/2014 12:17 PM CDT) BUN 12 7 - 26 mg/dL [facility] Creatinine 0.7 0.6 - 1.2 mg/dL [facility] Sodium 136 136 - 145 mmol/L [facility] Potassium 4.6(H) 3.5 - 4.5 mmol/L [facility] Chloride 97(L) 98 - 107 mmol/L [facility] CO2 31(H) 22 - 29 mmol/L [facility] Glucose 120(H) 70 - 115 mg/dL [facility] Calcium 9.1 8.4 - 10.2 mg/dL [facility] Anion Gap 13 8 - 18 [facility] BUN/Creatinine Ratio 17 7 - 23 [facility] Osmolality Calculated 269(L) 270 - 300 mOsm/kg [facility] eGFR >60 >60 mL/min/1.7 3 m2 [facility] Blood specimen (specimen) BLOOD SPECIMEN / Unknown 11/20/2014 12:17 PM CDT 11/20/2014 12:17 PM CDT us Shavonne Seo SHOT BLAST EQUIPMENT OPERATOR-DEVELOPMENT COORDINATOR LAB - CHEMISTRY ORDERA BLES Final Result [facility] [address] [phone] from Last 3 Months or Most Recently Relevant to Health Maintenance Insurance [facility] Care Teams Transition Rn Relationship Specialty Start Date End Date Chito Arreola MD PCP - General Internal Medicine 12/30/17 Chito Arreola MD 12/30/17
--- OUTSIDE RECORDS SUMMARY | 2025-02-25 19:04 | XMS_ITS | Encounter Summary ---
Author Organization [facility] Address [address] [place] [address] Phone Care Team Providers Care Welfare Specialist Name Role Phone Chito Arreola MD Primary Care Provider [phone] Ajit Roy Primary Care Provider Yris Foss MD Primary Care Provide r Eleazar Chinchilla MD Primary Care Provider [phone] Astrid Hansen NP Primary Care Provider Encounter Details Date Type Department Care Team (Late st Contact Info) Description 08/30/[address] 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 us Historical Provider LAB BLOOD ORDERABLES Rachel l Result documented in this encounter Visit Diagnoses Not on filedocumented in this encounter Additional Health Concerns Infection Onset Date Last Indicated Resolved Time COVID: Suspected 09/25/2023 09/25/2023 09/25/2023 4:49 PM LANDSCAPER COVID: Suspected 09/25/2023 09/25/2023 09/25/2023 10:31 PM LANDSCAPER Influenza, adult 09/25/2023 09/25/2023 10/02/2023 3:05 AM CDT documented as of this encounter Care Teams Welfare Specialist Relationship Specialty Start Date End Date Chito Arreola MD PCP - General 10/21/16 12/22/21 Ajit Roy PA [address] [facility] [place] [address] PCP - General Internal Medicine 12/23/21 02/17/22 Yris Foss MD [address] [facility] [address] [place] [address] PCP - General Family Medicine 02/18/22 10/02/22 Eleazar Chinchilla MD [address] [facility] [address] [place] [address] PCP - General Family Medicine 10/03/22 02/06/25 Astrid Hansen NP [address] [facility] [address] [place] [address] PCP - General Family Medicine 02/07/25 documented as of this encounter
--- OUTSIDE RECORDS SUMMARY | 2025-02-25 19:04 | XMS_ITS | Clinical Summary ---
Author Organization [facility] Address [address] [place] [address] Care Team Providers Care Audit Clerk Name Role Phone Aditya Nguyen NP Primary Care Provider Allergies No known active allergies Medications sertraline [...] by mouth daily 90 capsule 3 5 08/03/20 25 Discontinu ed(Misavaleriorosalinda te order) Active Problems Problem Noted Date Diagnosed Date [...] (07/12/2022): Added automatically from request for surgery [id number] Assessment & Plan (07/26/2022 1:28 PM PICKLE SORTER): Good response to questran Titrate dose and return prn Family history of colon cancer 07/12/2022 Overview (07/12/2022): Added automatically from request for surgery [id number] Mixed hyperlipidemia 09/13/2017 Assessment & Plan (10/07/2024 [...] 08/25 Assessment & Plan (07/12/2022 1:15 PM PICKLE SORTER): D 2-10/d Questran in past did help. [...] level 09/06/2013 09/13/2017 Overview (10/26/2016): Low testosterone Encounters Date Type Department Care Team Description 02/26/20 25 Telephone [facility] Medical [facility] Primary Care at [address] [place] [address] Aditya Nguyen, BARBER INSTRUCTOR Med Refill 02/26/20 25 Orders Only [facility] Primary Care at [address] [address] Aditya Nguyen, BARBER INSTRUCTOR 02/25/20 25 Results Follow-Up [facility] Primary Care at [address] [address] Aditya Nguyen, BARBER INSTRUCTOR MCT Mobile Cardiac Telemetry Event Monitor 02/25/20 25 Telephone [facility] Primary Care at [address] [address] Aditya Nguyen, BARBER INSTRUCTOR Test Results 02/24/20 25 Orders Only [facility] Gastroenterology at [address] [place] [address] Michele Mauro, 02/22/20 25 Telephone [facility] Gastroenterology at [address] [place] [address] Gi Howard LPN 02/21/20 25 Telephone [facility] Primary Care at [address] [address] Aditya Nguyen, BARBER INSTRUCTOR Medical Question/Miscellaneous 02/19/20 25 Telephone [facility] Primary Care at [address] [address] Aditya Nguyen, BARBER INSTRUCTOR Medical Question/Miscellaneous 02/14/20 25 12:47 PM CDT - 02/14/20 25 11:59 PM CDT Hospital Encounter [facility] Cardiology [address] [place] [address] 1st degree AV block; Irregular heart rhythm Discharge Disposition: Discharge to home or self care 02/08/20 25 Telephone [facility] Primary Care at [address] [address] Aditya Nguyen, BARBER INSTRUCTOR Medical Question/Miscellaneous 02/07/20 25 11:00 AM CDT Office Visit [facility] Primary Care at [address] [address] Aditya Nguyen, LIDA Heart block AV first degree (Primary Dx); Eosinophilic esophagitis; Body mass index (BMI) of 23.0 to 23.9 in adult; Hypertension, essential 02/07/20 Orders Only [facility] Primary Care at [address] [place] [address] Aditya Nguyen, LIDA 1st degree AV block; Irregular heart rhythm 02/04/20 12:16 PM CDT Anesthesia Event [address] [address] Tyrone Patterson MD [place], Neal P., CRNA 02/04/20 12:00 PM CDT - 02/04/20 12:30 PM CDT Surgery [address] [address] Michele Mauro, DO ESOPHAGOGASTRODUODENOSCOPY BIOPSY 02/04/20 10:44 AM CDT - 02/04/20 1:54 PM CDT Hospital Encounter [address] [address] Michele Mauro, DO Eosinophilic esophagitis Discharge Disposition: Discharge to home or self care 02/04/20 Nurse Triage [facility] [address] [place] [address] [phone] RN 02/04/20 Results Follow-Up [facility] Primary Care at [address] [address] Laquita Hagen NP EGD, ECG 12 lead 12/18/19 Orders Only [facility] Primary Care at [address] [address] Eleazar Chinchilla MD 11/30/19 25 Telephone [facility] Primary Care at [address] [address] Eleazar Chinchilla MD Med Refill 11/26/19 Telephone [facility] Gastroenterology at [address] [place] [address] MauroBalbirNelda from Last 3 Months Immunizations Immunization Administration Dates Next Due Influenza, Unspecified 10/07/2024(Deferr ed: Patient Refused),10/05/2023(Deferred: Patient Refused),04/24/2022(Deferred: Patient Refused),09/27/2021(Deferred: Patient Refused),07/24/2021(Deferred: Patient Refused),02/21/2021(Deferred: Patient Refused),09/21/2020(Deferred: Patient Refused),07/01/2020(Deferred: Patient Refused),09/18/2019(Deferred: Patient Refused),08/05/2019(Deferred: Patient ill today),04/23/2019(Deferred: Patient Refused),09/17/2018(Deferred: Patient Refused),08/08/2018(Deferred: Patient ill today) Tdap 10/22/2014,04/09/2014 ZOSTER LIVE 09/08/2015 ZOSTER Recombinant 02/21/2022,09/27/2021 Surgical History Surgery Date Site/Laterality Comments CHOLECYSTECTOMY Cholecystectomy COLONOSCOPY 09/21/2016 - 10/21/2016 UPPER GASTROINTESTINAL ENDOSCOPY 09/09/2024 UPPER GASTROINTESTINAL ENDOSCOPY 02/03/2025 Medical History Medical History Date Comments Osteoarthritis Osteoarthritis OBI (generalized anxiety disorder) HLD (hyperlipidemia) MDD (major depressive disorder) Bipolar 1 disorder (HCC) GERD (gastroesophageal reflux disease) Eosinophilic esophagitis Family History Medical History Relation Name Comments Other Brother 3 Alive and well; 2 sibs ages 50 & 45 with possible HTN and Depression Other Brother 4 Alive and well; Other Father ?stroke; Stroke Father Stroke; Colon cancer Mother Depression Mother Depression; Hypertension Mother Hypertension; Other Mother Alive and well; Other Other colon or breast ca; Other Sister 3 cholecystectomy ; Other Sister 4 Alive and well; Relation Name Status Comments Brother 1 Alive Brother 2 Alive Brother 3 Brother 4 Father Alive Mother Alive Other Sister 1 Alive Sister 2 Alive Sister 3 Sister 4 Social History Tobacco Use Types Packs/Day Years [...] on file Legal Sex Male 9:01 AM PICKLE SORTER Gender Identity Not on file Sexual Orientation Not on file Obstetrics History Last Filed Vital Signs Vital Sign Reading [...] 02/06/2025 11:04 AM CDT Plan of Treatment Health Maintenance Due Date Last Done Comments Hepatitis B Screening 1982 DTaP/Tdap/Td Vaccine (3 - Td or Tdap) 10/22/2024 10/22/2014, 04/09/2014 Influenza Vaccine (#1) 2025 Prostate Cancer Screening-PSA 10/02/2025 10/02/2024, 10/05/2023, 09/13/2021, Additional history exists Regular Well Visit/Exam 18-64 10/07/2025 10/07/2024, 10/05/2023, 10/03/2022, Additional history exists Depression Screening 02/06/2026 02/06/2025, 10/07/2024, 10/05/2023, Additional history exists Colon Cancer Screening-Colonoscopy 07/15/2027 07/15/2022, 09/26/2016, 09/26/2016, Additional history exists Hepatitis C Screening Completed 01/12/2012 Zoster Vaccine Completed 02/21/2022, 0301/2022, 09/08/2015 Colon Cancer Screening-CT Colonography Discontinued 07/15/2022, 09/26/2016, 09/26/2016, Additional history exists Colon Cancer Screening-DNA Stool Discontinued 07/15/2022, 09/26/2016, 09/26/2016, Additional history exists Colon Cancer Screening-FIT Discontinued 07/15, 09/26/2016, 09/26/2016, Additional history exists Colon Cancer Screening-Sigmoidoscopy Discontinued 07/15/2022, 09/26/2016, 09/26/2016, Additional history exists Pneumococcal vaccine <65 Aged Out No longer eligible based on [...] 10:14 AM CDT COLONOSCOPY 07/15/2022 9:24 AM PICKLE SORTER HM HEPATITIS C SCREENING Routine 01/12/2012 from Last 3 Months or Most Recently Relevant to Health Maintenance Results * MCT Mobile Cardiac Telemetry Event Monitor (02/13/2025 12:47 PM CDT) Anatomical Region Laterality Modality Electrocardiogra phy 02/19/2025 11:5 9 PM CDT Narrative 02/24/2025 10:54 AM CDT [address] [place] [address] EVENT MONITOR Patient Name: RICK FAY L [...] Procedure Note Elpidio Romero MD - 02/24/[address] [address] EVENT MONITOR Patient Name: RICK FAY L [...] AM CDT) 02/06/2025 11:0 0 AM CDT us Aditya Nguyen NP ECG ORDERABLES Final R esult * ECG 12 lead (02/03/2025 12:53 PM CDT) 02/03/2025 12:5 3 PM CDT Narrative [facility] - 02/03/2025 3:09 PM CDT Vent Rate: 51 bpm RR Interval: 1174 msec [place] Interval: 0 msec QRS Duration: 109 msec QT Interval: 491 msec QTC Interval: 467 msec P-R-T [place]: [address] - 44 - 50 degrees IMPRESSION: ATRIAL FIBRILLATION WITH SLOW VENTRICULAR RESPONSE POSSIBLE INFERIOR MYOCARDIAL INFARCTION , PROBABLY OLD [30 ms Q WAVE IN II/aVF] Peak T-waves. Consider hyperkalemia ABNORMAL RHYTHM ECG Electronically Signed By: Allen Talbot MD us Tyrone Patterson MD ECG ORDERABLES Final Result [facility] * EGD (02/03/2025 11:03 AM CDT) Anatomical Region Laterality Modality Other Narrative Procedure Note Michele Mauro, - 02/03/2025 11:03 AM CDT [facility] Patient Name: Rick Fay Procedure Date: 02/03/2025 11:03 AM Date of : 1965 Admit Type: Outpatient Age: 59 Gender: Male Attending MD: Marguerite ConnorsOJose, [facility] 2 Note Status: Finalized Patient [...] passed under direct vision. The Endoscope [id number] was introduced through the mouth, and advanced [...] 11:03 AM Procedure Code(s): --- Professional --- 10162, Esophagogastroduodenoscopy, flexible, transoral; with biopsy, single or multiple --- Technical --- 12609, Esophagogastroduodenoscopy, flexible, transoral; with biopsy, single or multiple Diagnosis Code(s): --- Professional --- K22.89, Other specified disease of esophagus K44.9, Diaphragmatic hernia without obstruction or gangrene K21.9, Gastro-esophageal reflux disease without esophagitis K20.0, Eosinophilic esophagitis --- Technical --- K22.89, Other specified disease of esophagus K44.9, Diaphragmatic hernia without obstruction or gangrene K21.9, Gastro-esophageal reflux disease without esophagitis K20.0, Eosinophilic esophagitis CPT copyright 2022 [employer]. All rights reserved. The codes documented in this report are preliminary and upon crusher plant operator reviewmay be revised to meet current compliance requirements. Recognized by the [place] [employer] for promoting quality in endoscopy Michele Mauro DO ENDOSCOPY PROCEDURES Final Res ult * Surgical pathology (02/03/2025 9:02 AM CDT) Tissue (Esophageal biopsy) 02/03/2025 12:36 PM CDT Narrative [facility] - 02/05/2025 10:04 AM CDT EPIC results best viewed via link to PDF [facility] Department of Pathology [address] [place], [place] [id number] Note to Patients: This report may contain [...] Report Patient Name: RICK FAY Address: [address] [place] [address] Gender: M : 1965 (Age: 59) Service: Gastro Location: [facility] Hospital #: [id number] Patient [facility] Taken: 02/03/2025 Received: 02/04/2025 Accessioned: 02/04/2025 Reported: [...] determined by the Surgical Pathology Department at [facility] as part of an ongoing quality lab technician program and in compliance with federally mandated [...] characteristics determined by the Surgical Pathology Department [facility]. It has not been cleared or approved by the U. S. Food and Drug Administration. Note for decalcified specimens: This assay has not been validated on decalcified tissues. Results should be interpreted with caution given the possibility of false negativity on decalcified specimens Michele Mauro DO LAB PATHOLOGY ORDERABLES Final Result Performing Organization Address City/[facility] Co de Phone Number PATHOLOGY [facility]) [address] [place] [phone] * PSA screen (10/02/2024 10:14 AM CDT) PSA 0.50 < OR = 4.00 ng/mL [facility] Comment: The total PSA value from this assay system is standardized against the WHO standard. The test result will be approximately 20% lower when compared to the equimolar-standardized total PSA (Kalyan Locust). Comparison of serial PSA results should be [...] MD LAB BLOOD ORDERABLES Final Resul t Performing Organization Address City/[facility] Co de Phone Number [facility] [address] [place] [address] * COLONOSCOPY (07/15/2022 9:24 AM PICKLE SORTER) Anatomical Region Laterality Modality Other Narrative Procedure Note Jon Braun MD - 07/15/2022 9:[address] [facility] Patient Name: Rick Fay Procedure Date: 07/15/2022 9:24 AM Date of : 1965 Admit Type: Outpatient Age: 57 Gender: Male Attending MD: Jon Braun M.D. Room: [facility] 2 Note Status: Finalized Patient Profile: Refer to note in patient chart for documentation of history and physical. Procedure: Colonoscopy Indications: Family history of colon cancer in a first-degree relative before age 60 years, Last colonoscopy:September 2016, Chronic diarrhea Referring MD: Yirs Foss M.D. Providers: Jon Braun M.D. Impression: [...] scope was passed under direct vision. TheColonoscope [id number] was introduced through the anus and advanced [...] 9:24 AM Procedure Code(s): --- Professional --- 21915, Colonoscopy, flexible; with biopsy, single or multiple Diagnosis Code(s): --- Professional --- K52.9, Noninfective gastroenteritis and colitis, unspecified Z80.0, Family history of malignant neoplasm of digestive organs K64.9, Unspecified hemorrhoids CPT copyright 2020 [employer]. All rights reserved. The codes documented in this report are preliminary and upon crusher plant operator reviewmay be revised to meet current compliance requirements. Recognized by the [place] [employer] for promoting quality [...] Advance Directives For more information, please contact: [phone] * Full Code (Latest Code Status on [...] 9:17 AM 07/15/2022 4:10 PM Care Teams Audit Clerk Relationship Specialty Start Date End Date Aditya Nguyen, BARBER INSTRUCTOR [address] [place] [address] [address] PCP - General Family Medicine 02/07/25
--- OUTSIDE RECORDS SUMMARY | 2025-02-25 19:04 | XMS_ITS | Encounter Summary ---
Author Organization [facility] Healthcare Address [address] [place] [address] Care Team Providers Care Home Staging Specialist Name Role Phone Astrid Hansen FISHER TROT LINE Primary Care Provider Reason for Visit * Reason Onset Date Comments Medical Question/Miscellaneous 02/20/2025 Encounter Details Date Type Department Care Team (Late st Contact Info) Description 02/20/2025 Telephone [facility] Medical Group Primary Care at [address] [place] [address] Astrid Hansen, LIDA [address] [place] [address] [address] [place] [address] Medical Question/Miscellaneous Social History Tobacco [...] on file Legal 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 Please notify patient's when faxed over. They need the order to be able to get scheduled [facility]. Does message need to be routed? Yes-Action Needed * Telephone Encounter - Caitie Miller NP - 02/21/2025 9:17 AM CDT Routed to referrals. Can you help provide this information to the patient? Caitie Miller NP * Telephone Encounter - Divya Wyman - 02/21/2025 9:06 AM CDT Medical Question/Miscellaneous Caller???s Concern: Patient needs to know CPT code for EKG and the exact procedure he's having so she can go somewhere else for the procedure. Does message need to be routed? Yes-Action Needed * Telephone Encounter - Merle Mcmillan - 02/20/2025 11:22 AM CDT Medical Question/Miscellaneous Caller???s Concern: Calling to schedule Transthoracic Echo (TTE) Complete W Doppler/CF Does message need to be routed? No documented in this encounter Plan of Treatment Not on file documented as of this encounter Visit Diagnoses Not on filedocumented in this encounter Care Teams Home Staging Specialist Relationship Specialty Start Date End Date Asrtid Hansen FISHER TROT LINE [address] [place] [address] DR HESS [address] [place] [address] PCP - General Family Medicine 02/07/25 documented as of this encounter
--- NOTE | 2025-02-25 19:11 | ECG_ITS ---
Test Date: 2025-02-25 19:14:49 Measurements Intervals [place] Rate: 68 P: 0 ND: 0 QRS: 52 QRSD: 105 T: 52 QT: 389 QTc: 415 Interpretive Statements ATRIAL FLUTTER/TACHYCARDIA WITH VARIABLE BLOCK INCOMPLETE RIGHT BUNDLE BRANCH BLOCK PEAKED T WAVES- CONSIDER HYPERKALEMIA BASELINE ARTIFACT- II, III, AVR, AVL, AVF, V1-V2 ABNORMAL ECG Compared to ECG 02/25/2025 17:03:57 Atrial fibrillation no longer present Electronically Signed On 02-25-2025 19:40:57 CDT by Alexandro Luong D.O.
[2025-02-25 19:22] LABS: Magnesium 2.0 mg/dL (1.6-2.3)
[2025-02-25] MEDS: SODIUM CHLORIDE 0.9% IV 1,000 ML 999 ML IV CONT (19:33)
[2025-02-25] MEDS: METOPROLOL TARTRATE INJ 5 MG/5 ML VIAL IV PUSH (19:35)
[2025-02-25 19:59] LABS: Magnesium 2.1 mg/dL (1.6-2.3)
[2025-02-25] MEDS: METOPROLOL TARTRATE 50 MG TAB PO (20:18)
[2025-02-25 20:25] LABS: Troponin I < 0.012 ng/mL (0.000-0.034)
== END 2025-02-25 21:12 | disposition home or self-care (01) ==
PROVIDERS: Family Medicine; Emergency Provider Physician Assistant
DX: I48.91 Unspecified atrial fibrillation (principal); M19.041 Primary osteoarthritis, right hand; F31.9 Bipolar disorder, unspecified; Z90.49 Acquired absence of other specified parts of digestive tract; Z79.899 Other long term (current) drug therapy; Z79.01 Long term (current) use of anticoagulants; I45.10 Unspecified right bundle-branch block; I48.92 Unspecified atrial flutter; R00.0 Tachycardia, unspecified; R94.31 Abnormal electrocardiogram [ECG] [EKG]
CPT/HCPCS: 36415; 71045; 80053; 83690; 83735; 84484; 85025; 85610; 85730; 93005; 96361; 96374; 99284; A9270; J0616; J7030

== ENCOUNTER 2025-03-25 08:07 | Outpatient (CLI) | payer BC, SELFPAY ==
--- OUTSIDE RECORDS SUMMARY | 2025-03-25 08:10 | XMS_ITS | Clinical Summary ---
Author Organization [facility] Address [facility] [place] [address] Care Team Providers Care Manager Internet Retails Sales Name Role Phone Alexandro Luong DO Unavailable Encounters Date Type Department Care Team Description 03/19/2025 Telephone [facility] [address] [address] [place], A Appointment Request (Self ref) from Last 3 Months Social History Tobacco Use Types Packs/Day Years Used Date Smoking Tobacco: Never Assessed Sex and Gender Information Value Date Recorded Sex Assigned at Not on file Legal Sex Male 2:19 PM CDT Gender Identity Not on file Sexual Orientation Not on file Plan of Treatment Health Maintenance Due Date Last Done Comments Colorectal Cancer Screening Colonoscopy (10 Years) 1965 Annual Physical 1967 Hepatitis C 1982 DTaP, Tdap and Td Vaccines ( 1 - Tdap) 1983 Pneumococcal Vaccine: 50+ Ye ars (1 of 1 - PCV) 2014 Zoster Vaccines (1 of 2) 2014 COVID-19 Vaccine ( - 2023-2 5 season) 2024 RSV Immunization or 60+ Years (1 - 1-dose 75+ series) 2039 Meningococcal B Vaccine Aged Out No l onger eligible based on patient's age to complete this topic Meningococcal Vaccine Aged Out No chilo mandi eligible based on patient's age to complete this topic RSV Immunizations Under 20 Months Aged Out No longer eligible based on patient's age to complete this topic Care Teams Manager Internet Retails Sales Relationship Specialty Start Date End Date Alexandro Luong DO [address] [place] [address] INTERNAL MEDICINE 03/19/25
--- OUTSIDE RECORDS SUMMARY | 2025-03-25 08:10 | XMS_ITS | Encounter Summary ---
Author Organization [facility] Healthcare Address [address] [place] [address] Care Team Providers Care Junior Network Engineer Name Role Phone Astrid Hansen NP Primary Care Provider Encounter Details Date Type Department Care Team (Late st Contact Info) Description 02/24/2025 Results Follow-Up [facility] Medical Group Primary Care at [address] [place] [address] Astrid Hansen, REGULATORY COMPLIANCE OFFICER [address] [place] [address] [address] [place] [address] MCT Mobile Cardiac Telemetry Event [...] on file Legal Sex Male 9:01 AM CUSTOMS COMPLIANCE DIRECTOR Gender Identity Not on file Sexual Orientation Not on file documented as of this encounter Miscellaneous Notes * Telephone Encounter - Massiel Ace MA - 02/24/2025 4:21 PM CDT Spoke with pt 02/24. Pt is aware of results. Pt is agreeable for starting a blood thinner. documented in this encounter Plan of Treatment Not on file documented as of this encounter Visit Diagnoses Not on filedocumented in this encounter Care Teams Junior Network Engineer Relationship Specialty Start Date End Date Astrid Hansen REGULATORY COMPLIANCE OFFICER [address] [facility] [address] [place] [id number] PCP - General Family Medicine 02/07/25 documented as of this encounter
--- OUTSIDE RECORDS SUMMARY | 2025-03-25 08:10 | XMS_ITS | Encounter Summary ---
Author Organization [facility] Healthcare Address [address] [place] [address] Care Team Providers Care Director Of Broadcast Name Role Phone Astrid Hansen NP Primary Care Provider Reason for Visit * Reason Onset Date Comments Test Results 02/24/2025 Encounter Details Date Type Department Care Team (Late st Contact Info) Description 02/24/2025 Telephone [facility] Medical Group Primary Care at [address] [place] [address] Astrid Hansen, LIDA [address] [place] [address] [address] [place] [address] Test Results Social History Tobacco [...] on file Legal Sex Male 9:01 AM SLITTER SCORER CUT OFF OPERATOR Gender Identity Not on file Sexual Orientation [...] filedocumented in this encounter Care Teams Director Of Broadcast Relationship Specialty Start Date End Date Astrid Hansen NP [address] [place] [address] DR HESS [address] [place] [address] PCP - General Family Medicine 02/07/25 documented as of this encounter
--- OUTSIDE RECORDS SUMMARY | 2025-03-25 08:10 | XMS_ITS | Encounter Summary ---
Author Organization [facility] Address [address] [place] [address] Phone Care Team Providers Care Door Liner Helper Name Role Phone Chito Arreola MD Primary Care Provider [phone] Ajit Roy Primary Care Provider Yris Foss MD Primary Care Provide r Eleazar Chinchilla MD Primary Care Provider [phone] Astrid Hansen NP Primary Care Provider Encounter Details Date Type Department Care Team (Late st Contact Info) Description 08/30/2017 Orders Only [facility] ProviderJaci MD [address] [place] [id number] Social History Tobacco Use Types Packs/Day Years Used Date Smoking Tobacco: Never Alcohol Use Standard Drinks/Week Comments Yes 0 (1 standard drink = 0.6 oz pur e alcohol) Sex and Gender Information Value Date Recorded Sex Assigned at Not on file Legal Sex Male 9:01 AM MARKER MACHINE Gender Identity Not on file Sexual Orientation Not on file documented as of this encounter Plan of Treatment Not on file documented as of this encounter Procedures Procedure Name Priority Date/Time Associated Diagnosis Comments DISCHARGE LABORATORY CUMULATIVE REPORT 08/30/2017 12:00 AM MARKER MACHINE documented in this encounter Results * DISCHARGE LABORATORY CUMULATIVE REPORT (08/30/2017 12:00 AM MARKER MACHINE) Narrative 08/30/2017 12:00 AM MARKER MACHINE Ordered by an unspecified provider. us Historical Provider LAB BLOOD ORDERABLES Rachel l Result documented in this encounter Visit Diagnoses Not on filedocumented in this encounter Additional Health Concerns Infection Onset Date Last Indicated Resolved Time COVID: Suspected 09/25/2023 09/25/2023 09/25/2023 4:49 PM MARKER MACHINE COVID: Suspected 09/25/2023 09/25/2023 09/25/2023 10:31 PM MARKER MACHINE Influenza, adult 09/25/2023 09/25/2023 10/02/2023 3:05 AM CDT documented as of this encounter Care Teams Door Liner Helper Relationship Specialty Start Date End Date Chito Arreola MD PCP - General 10/21/16 12/22/21 Ajit Roy PA [address] [place] [address] PCP - General Internal Medicine 12/23/21 02/17/22 Yris Foss MD [address] [place], [place] [address] PCP - General Family Medicine 02/18/22 10/02/22 Eleazar Chinchilla MD [address] [place], [place] [address] PCP - General Family Medicine 10/03/22 02/06/25 Asrtid Hansen NP [address] [place], [place] [address] PCP - General Family Medicine 02/07/25 documented as of this encounter
--- OUTSIDE RECORDS SUMMARY | 2025-03-25 08:10 | XMS_ITS | Clinical Summary ---
Author Organization [facility] [employer] Address [address] [place] [address] Care Team Providers Care Barber Shop Operator Name Role Phone Chito Arreola MD Primary Care Provider Unavail able Chito Arreola MD Unavailable Unavailable Source Comments [facility],non-owned Affiliates and Associated Physician Practices is amultiple site organization consisting of ambulatory clinics and hospital sitesin [place], [place], [place] and [place]. This disclosure is being madepursuant to the Care Everywhere program and may not contain all information available regarding this patient. Last updated 18.[facility] Allergies No known active allergies Medications * [...] CDT) BUN 12 7 - 26 mg/dL [facility] Creatinine 0.7 0.6 - 1.2 mg/dL [facility] Sodium 136 136 - 145 mmol/L [facility] Potassium 4.6(H) 3.5 - 4.5 mmol/L [facility] Chloride 97(L) 98 - 107 mmol/L [facility] CO2 31(H) 22 - 29 mmol/L [facility] Glucose 120(H) 70 - 115 mg/dL [facility] Calcium 9.1 8.4 - 10.2 mg/dL [facility] Anion Gap 13 8 - 18 [facility] BUN/Creatinine Ratio 17 7 - 23 [facility] Osmolality Calculated 269(L) 270 - 300 mOsm/kg [facility] eGFR >60 >60 mL/min/1.7 3 m2 [facility] Blood specimen (specimen) BLOOD SPECIMEN / Unknown 11/20/2014 12:17 PM CDT 11/20/2014 12:17 PM CDT us Shavonne Seo 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 Care Teams Barber Shop Operator Relationship Specialty Start Date End Date Chito Arreola MD PCP - General Internal Medicine 12/30/17 Chito Arreola MD 12/30/17
--- OUTSIDE RECORDS SUMMARY | 2025-03-25 08:10 | XMS_ITS | Encounter Summary ---
Author Organization [facility] Address [address] [place] [address] Care Team Providers Care Casting Finisher Name Role Phone Astrid Hansen NP Primary Care Provider Reason for Visit * Reason Onset Date Comments Med Refill 02/25/2025 Encounter Details Date Type Department Care Team (Late st Contact Info) Description 02/25/2025 Telephone [facility] Primary Care at [address] [place] [address] Astrid Hansen, LIDA [address] [place] [address] [address] [place] [address] Med Refill Social History Tobacco [...] on file 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
--- OUTSIDE RECORDS SUMMARY | 2025-03-25 08:10 | XMS_ITS | Encounter Summary ---
Author Organization [facility] Healthcare Address [address] [place] [address] Care Team Providers Care Pin Cleaner Name Role Phone Astrid Hansen NP Primary Care Provider Encounter Details Date Type Department Care Team (Latest Contact Info) Description 03/19/2025 Results Follow-Up [facility] Gastroenterology at [address] [place] [id number] Michele Mauro, [address] [place] [address] [place] Modified Barium Swallow W Video Social History Tobacco Use Types Packs/Day Years [...] on file 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
--- OUTSIDE RECORDS SUMMARY | 2025-03-25 08:10 | XMS_ITS | Clinical Summary ---
Author Organization [facility] Address [address] [place] [address] Care Team Providers Care Order Administrator Name Role Phone Aditya Nguyen NP Primary Care Provider Allergies No known active allergies Medications sertraline (ZOLOFT) 100 mg tablet take 1 tablet (100MG) by oral route every day 0 01/13/20 12 Active OXcarbazepine (TRILEPTAL) 300 mg tablet take 1 tablet (300MG) by oral route 2 times every day 0 01/13/20 12 Active OLANZapine (ZyPREXA) 2.5 mg tablet take 2 tablet (5MG) by oral route every day 0 01/13/20 12 Active fluticasone propionate (FLONASE) 50 mcg/actuation nasal spray Administer 1 spray into each nostril daily Active omeprazole (PriLOSEC) 40 mg capsule Take 1 capsule (40 mg total) by mouth 2 (two) times a day before breakfast and dinner 180 capsule 3 02/24/20 25 026 Active flecainide (TAMBOCOR) 50 mg tabletIndicati ons:PAF (paroxysmal atrial fibrillation) Take 1 tablet (50 mg total) by mouth 2 (two) times a day 60 tablet 11 03/10/20 25 026 Active dicyclomine (BENTYL) 10 mg capsule Take 1 capsule (10 mg total) by mouth 4 (four) times a day as needed (diarrhea) 360 capsule 3 03/11/20 25 026 Active apixaban (Eliquis) 5 mg tablet TAKE 1 TABLET(5 MG) BY MOUTH TWICE DAILY 200 tablet 1 03/22/20 25 Active apixaban (ELIQUIS) 5 mg tablet Take 1 tablet (5 mg total) by mouth 2 (two) times a day 60 tablet 02/26/20 25 025 Discontinued metoprolol tartrate (LOPRESSOR) 50 mg immediate release tablet Take 1 tablet (50 mg total) by mouth every 12 (twelve) hours 02/27/20 25 025 Discontinued Active Problems Problem Noted Date Diagnosed Date PAF (paroxysmal atrial fibrillation) 03/10/2025 Snoring 03/10/2025 Body mass index (BMI) of 23.0 to [...] (07/12/2022): Added automatically from request for surgery [id number] Assessment & Plan (07/26/2022 1:28 PM DESK EDITOR): Good response to questran Titrate dose and return prn Family history of colon cancer 07/12/2022 Overview (07/12/2022): Added automatically from request for surgery [id number] Mixed hyperlipidemia 09/13/2017 Assessment & Plan (10/07/2024 [...] 08/25 Assessment & Plan (07/12/2022 1:15 PM DESK EDITOR): D 2-10/d Questran in past did help. [...] Encounters Date Type Department Care Team Description 025 11:00 AM CDT Therapy [facility] Speech Therapy [address] [place] [address] Eva Templeton SLP Oropharyngeal dysphagia (Primary Dx) 025 10:30 AM CDT - 025 11:59 PM CDT Hospital Encounter [facility] [address] [place] [address] Farooq Quezada Fluoro Oropharyngeal dysphagia Discharge Disposition: Discharge to home or self care 025 Plan of Care Documentation [facility] Speech Therapy [address] [place] [address] 025 Results Follow-Up [facility] Gastroenterology at [address] [place] [address] Michele Mauro, DO [place] Modified Barium Swallow W Video 025 10:00 AM CDT Ancillary Procedure [facility] Cardiology [address] [place] [phone] PAF (paroxysmal atrial fibrillation) (Primary Dx) 025 Telephone [facility] Primary Care at [address] [place] [phone] Aditya Nguyen NP 025 Telephone [facility] Medicine Cardiology [address] [facility] Advanced Medicine 8th [place] [address] [place] [address] Britney Nielson 025 Results Follow-Up [facility] Cardiology [address] [facility] [address], [place] [phone] Rhys Godinez MD TSH 025 2:15 PM CDT Office Visit [facility] Gastroenterology at [address] [place] [phone] Michele Mauro DO Oropharyngeal dysphagia (Primary Dx); Gastroesophageal reflux disease without esophagitis; Eosinophilic esophagitis; Chronic diarrhea; Family history of colon cancer 025 10:30 AM CDT Office Visit [facility] Cardiology [address] [facility] [address] [place] [address] Rhys Godinez MD Palpitations (Primary Dx); Mixed hyperlipidemia; PAF (paroxysmal atrial fibrillation); Snoring 025 Results Follow-Up [facility] Primary Care at [address] [place] [phone] Aditya Nguyen, LIDA Transthoracic Echo (TTE) Complete W Doppler/CF 025 9:26 AM CDT - 025 11:59 PM CDT Hospital Encounter [facility] [place] [facility] Non-invasive Cardiac Diagnostic Testing [address] [place] [address] Atrial fibrillation, unspecified type (HCC) Discharge Disposition: Discharge to home or self care 025 Telephone [facility] Primary Care at [address] [phone] Aditya Nguyen, LIDA 025 Telephone [facility] Primary Care at [address] [phone] Aditya Nguyen, LIDA Med Refill 025 Orders Only [facility] Primary Care at [address] [phone] Aditya Nguyen, LIDA 025 Results Follow-Up [facility] Primary Care at [address] [phone] Aditya Nguyen, LIDA [facility] Mobile Cardiac Telemetry Event Monitor 025 Telephone [facility] Primary Care at [address] [phone] Aditya Nguyen, LIDA Test Results 025 Orders Only [facility] Gastroenterology at [address] [place] [address] Michele Mauro, 025 Telephone [facility] Gastroenterology at [address] [place] [address] Gi Howard LPN 025 Telephone [facility] Primary Care at [address] [address] Aditya Nguyen, [employer] Medical Question/Miscellaneous 025 Telephone [facility] Primary Care at [address] [phone] Aditya Nguyen, ILDA Medical Question/Miscellaneous 025 12:47 PM CDT - 025 11:59 PM CDT Hospital Encounter [facility] Cardiology [address] [place] [address] 1st degree AV block; Irregular heart rhythm Discharge Disposition: Discharge to home or self care 025 Telephone [facility] Primary Care at [address] [address] Aditya Nguyen, LIDA Medical Question/Miscellaneous 025 11:00 AM CDT Office Visit [facility] Primary Care at [address] [address] Aditya Nguyen, LIDA Heart block AV first degree (Primary Dx); Eosinophilic esophagitis; Body mass index (BMI) of 23.0 to 23.9 in adult; Hypertension, essential 025 Orders Only [facility] Primary Care at [address] [phone] Aditya Nguyen, [employer]IVER 1st degree AV block; Irregular heart rhythm 025 12:16 PM CDT Anesthesia Event [address] [address] Tyrone Patterson MD [place], Avtar Cerda, LEAD SOFTWARE TESTER 025 12:00 PM CDT - 025 12:30 PM CDT Surgery [address] [address] Michele Mauro, DO ESOPHAGOGASTRODUODENOSCOPY BIOPSY 025 10:44 AM CDT - 025 1:54 PM CDT Hospital Encounter [address] [address] Michele Mauro, DO Eosinophilic esophagitis Discharge Disposition: Discharge to home or self care 025 Nurse Triage [facility] [address] [place] [phone] RN 025 Results Follow-Up [facility] Primary Care at [address] [place] [phone] Laquita Hagen NP EGD, ECG 12 lead from Last 3 Months Immunizations Immunization Administration [...] (HCC) GERD (gastroesophageal reflux disease) Eosinophilic esophagitis PAF (paroxysmal atrial fibrillation) SCCA (squamous cell carcinoma) of skin L. leg. Family History Medical History Relation Name Comments [...] on file Legal Sex Male 9:01 AM DESK EDITOR Gender Identity Not on file Sexual Orientation Not on file Obstetrics History Last Filed Vital Signs Vital Sign Reading Time Taken Comments Blood Pressure 104/60 03/17/2025 11:34 AM CDT Pulse 50 03/17/2025 11:34 AM CDT Temperature 36.6 C (97.9 F) 02/03/2025 1:15 PM CDT Respiratory Rate 16 03/10/2025 10:49 AM CDT Oxygen Saturation 95% 03/11/2025 1:55 PM CDT Inhaled Oxygen Concentration - - Weight 81.3 kg (179 lb 3.2 oz) 03/11/2025 1:55 P M CDT Height 188 cm (6' 2) 03/11/2025 1:55 PM CDT Body Mass Index 23.01 03/11/2025 1:55 PM CDT Plan of Treatment Health Maintenance [...] Procedure Name Priority Date/Time Associated Diagnosis Comments FL MODIFIED BARIUM SWALLOW W VIDEO Schedule Routine, Read Routine (OP Routine) 03/19/2025 11:15 AM CDT Oropharyngeal dysphagia ELECTROCARDIOGRAM REPORT Routine 025 11:36 AM CDT PAF (paroxysmal atrial fibrillation) TSH Routine 03/11/2025 10:00 AM CDT PAF (paroxysmal atrial fibrillation) ELECTROCARDIOGRAM REPORT Routine 03/10/2025 Atrial fibrillation, unspecified type (HCC) ELECTROCARDIOGRAM REPORT Routine 03/10/2025 Palpitations TRANSTHORACIC ECHO (TTE) COMPLETE W DOPPLER/CF WO CONTRAST Routine 02/27/2025 11:37 AM CDT Atrial fibrillation, unspecified type (HCC) MCT - MOBILE CARDIAC TELEMET RY EVENT [...] 10:14 AM CDT COLONOSCOPY 07/15/2022 9:24 AM DESK EDITOR HEPATITIS C SCREENING Routine 01/12/2012 from Last 3 Months or Most Recently Relevant to Health Maintenance Results * FL Modified Barium Swallow W Video (03/19/2025 11:15 AM CDT) Anatomical Region Laterality Modality Head and Neck N/A Radio Fluoroscop y 03/19/2025 1:21 PM CDT Narrative 03/19/2025 1:21 PM CDT EXAM DESCRIPTION: FL MODIFIED BARIUM SWALLOW EVALUATION WITH SPEECH THERAPIST REASON FOR STUDY: FT: 0.9 MIN MGY: 4.4 Oropharyngeal dysphagia RADIATION DOSE: Dose: 159.64 uGym2 Dose Area Product (DAP) TECHNIQUE: Fluoroscopic assistance provided to Speech Pathology Department who performed the exam. The patient was brought into the fluoro room and placed upright on a modified barium swallow chair. The patient was then given multiple consistencies mixed with barium to swallow under live fluoroscopic video guidance. COMPARISON: None. FINDINGS: There is no definite evidence of tree aspiration. There was flash penetration identified with thin liquid consistency. IMPRESSION: 1. No definite evidence of tree aspiration. 2. Flash penetration identified with thin liquid consistency. Please correlate with Speech Pathology report. THIS IS AN ELECTRONICALLY VERIFIED FINAL REPORT 03/19/2025 1:21 PM - Electronically signed by Fredy Metcalf D.O. PS: PS Report ID: [id number] Reading Location: [id number] Procedure Note Fredy Metcalf, DO - 03/19/2025 EXAM DESCRIPTION: FL MODIFIED BARIUM SWALLOW EVALUATION WITH SPEECH THERAPIST REASON FOR STUDY: FT: 0.9 MIN MGY: 4.4 Oropharyngeal dysphagia RADIATION DOSE: Dose: 159.64 uGym2 Dose Area Product (DAP) TECHNIQUE: Fluoroscopic assistance provided to Speech Pathology Departmentwho performed the exam. The patient was brought into the fluoro room and placed upright on amodified barium swallow chair. The patient was then given multiple consistenciesmixed with barium to swallow under live fluoroscopic video guidance. COMPARISON: None. FINDINGS: There is no definite evidence of tree aspiration. There was flash penetration identified with thin liquid consistency. IMPRESSION: 1. No definite evidence of tree aspiration. 2. Flash penetration identified with thin liquid consistency. Please correlate with Speech Pathology report. THIS IS AN ELECTRONICALLY VERIFIED FINAL REPORT 03/19/2025 1:21 PM - Electronically signed by Fredy Metcalf D.O. PS: PS Report ID: [id number] Reading Location: [id number] Michele Mauro DO IMG FLUOROSCOPY PROCEDURES Fin al Result * Electrocardiogram Report (03/17/2025 11:36 AM CDT) Rhys Godinez MD ECG ORDERABLES Rachel l Result * TSH (03/11/2025 10:00 AM CDT) TSH 1.90 0.40 - 4.50 mIU/L [facility] Blood 03/11/2025 10:0 0 AM CDT 03/11/2025 10:01 AM CDT Rhys Godinez MD LAB BLOOD ORDERABLES Final Result [facility] [address] [place] [address] * Electrocardiogram Report (03/10/2025) 03/10/2025 Rhys Godinez MD ECG ORDERABLES Rachel l Result * Electrocardiogram Report (03/10/2025) 03/10/2025 us Rhys Godinez MD ECG ORDERABLES Rachel l Result * TRANSTHORACIC ECHO (TTE) COMPLETE W DOPPLER/CF WO CONTRAST (02/27/2025 11:37 AM CDT) EF Mod BP 58 % CONS SCIMAGE Anatomical Region Laterality Modality Ultrasound 02/27/2025 10:4 3 AM CDT Narrative 02/27/2025 8:59 PM CDT [address] [address] Echocardiogram Report Patient Name: RICK FAYRenny : 1965 Study Date: 02/27/2025 10:43:58 AM Gender: M Tech: PEBBLES Location: stress lab Ref Provider: CAITIE LEE Height(Cm): 188 BSA: 2.08 Weight(Kg): 82.6 Heart Rate: 48 BP: 117/78 Quality: Good Order Provider: CAITIE LEE PROCEDURES: Echocardiographic Report: Transthoracic echocardiogram with complete 2D, M-Mode, and color Doppler examination. INDICATIONS: Atrial Fibrillation and I48.91 Unspecified atrial fibrillation. MEASUREMENTS: 2D/MM Value Range Doppler Value Range EF Teich 2D 56.3 percent [ 52.0 - 72.0 ] ANGELA Vmax 2.79 cm2 EF Mod BP 58 % [ 52 - 72 ] AV Mean PG 5 mmHg LVIDd 2D 5.66 cm [ 4.20 - 5.80 ] AV Peak Ronak 1.12 m/s [ 1.00 - 1.70 ] LVIDs 2D 3.97 cm [ 2.50 - 4.00 ] AV VTI 25.03 cm LVPWd 2D 0.65 cm [ 0.60 - 1.00 ] LVOT Diam 2.44 cm IVSd 2D 0.71 cm [ 0.60 - 1.00 ] LVOT Peak Ronak 0.67 m/s [ 0.70 - 1.10 ] LA Dimension 2D 3.47 cm [ 3.00 - 4.00 ] LVOT VTI 13.96 cm LA Dimension MM 4.28 cm [ 3.00 - 4.00 ] SI LVOT 31.1 ml/m2 [ >= 35.0 ] AoR Diam MM 3.53 cm [ 3.10 - 3.70 ] MV Mean PG 1 mmHg ACS MM 2.53 cm [ 1.50 - 2.60 ] MR PISA 0.42 PV Peak Ronak 0.71 m/s [ 0.40 - 0.80 ] TR Peak Ronak 1.83 m/s [ 1.00 - 2.80 ] TR Peak PG 13 mmHg E` 0.11 m/s 2D/MM Value Range Doppler Value Range - FINDINGS: Atrial Septum: Normal atrial septum. Left Ventricle: Mild enlargement of left ventricle cavity. Normal left ventricular wall thickness. Left ventricular systolic function at the lower limit of normal. Ejection fraction is measured at 58 %. Left Atrium: The left atrium is normal in size. Right Ventricle: Moderate enlargement of right ventricle. Moderate right ventricular hypokinesis. Right Atrium: The right atrium is normal in size. Aortic Valve: Aortic valve not well visualized. No evidence of hemodynamically significant aortic stenosis by Doppler. Mitral Valve: Normal structure of the mitral valve. Trivial regurgitation of the mitral valve. Pulmonic Valve: Pulmonic valve not well visualized. Tricuspid Valve: Normal structure of the tricuspid valve. Estimated peak RVSP is 21 mmHg. Pericardium: Normal pericardium with no significant pericardial effusion. Aorta: Normal aortic root. IVC: Dilated inferior vena cava with poor inspiratory collapse consistent with elevated right atrial pressures. CONCLUSIONS: Mild enlargement of left ventricle cavity. Normal left ventricular wall thickness. Left ventricular systolic function at the lower limit of normal. Ejection fraction is measured at 58 %. Indeterminate diastolic function. Moderate RV enlargement with hypokinesis. Normal structure of the mitral valve. Trivial regurgitation of the mitral valve. Aortic valve not well visualized. No evidence of hemodynamically significant aortic stenosis by Doppler. Estimated peak RVSP 21 mmHg. Atrial fibrillation. Electronically Signed By: Osmin Stewart MD, [facility] 02/27/2025 8:58:41 PM CDT Procedure Note Osmin Stewart MD - 02/27/2025 [place] [address] Echocardiogram Report Patient Name: RICK FAY L : 1965 Study Date: 02/27/2025 10:43:58 AM Gender: M Tech: PEBBLES Location: stress lab Ref Provider: CAITIE LEE Height(Cm): 188 BSA: 2.08 Weight(Kg): 82.6 Heart Rate: 48 BP: 117/78 Quality: Good Order Provider: CAITIE LEE PROCEDURES: Echocardiographic Report: Transthoracic echocardiogram with complete 2D, M-Mode, and color Dopplerexamination. INDICATIONS: Atrial Fibrillation and I48.91 Unspecified atrial fibrillation. MEASUREMENTS: 2D/MM Value Range DopplerValue Range EF Teich 2D 56.3 percent [ 52.0 - 72.0 ] ANGELA Vmax2.79 cm2 EF Mod BP 58 % [ 52 - 72 ] AV Mean PG 5mmHg LVIDd 2D 5.66 cm [ 4.20 - 5.80 ] AV Peak Vel1.12 m/s [ 1.00 - 1.70 ] LVIDs 2D 3.97 cm [ 2.50 - 4.00 ] AV VTI25.03 cm LVPWd 2D 0.65 cm [ 0.60 - 1.00 ] LVOT Diam2.44 cm IVSd 2D 0.71 cm [ 0.60 - 1.00 ] LVOT Peak Vel0.67 m/s [ 0.70 - 1.10 ] LA Dimension 2D 3.47 cm [ 3.00 - 4.00 ] LVOT VTI13.96 cm LA Dimension MM 4.28 cm [ 3.00 - 4.00 ] SI LVOT31.1 ml/m2 [ >= 35.0 ] AoR Diam MM 3.53 cm [ 3.10 - 3.70 ] MV Mean PG 1mmHg ACS MM 2.53 cm [ 1.50 - 2.60 ] MR PISA0.42 PV Peak Ronak 0.71 m/s [ 0.40 - 0.80 ] TR Peak Ronak 1.83 m/s [ 1.00 - 2.80 ] TR Peak PG 13 mmHg E` 0.11 m/s 2D/MM Value Range DopplerValue Range - FINDINGS: Atrial Septum: Normal atrial septum. Left Ventricle: Mild enlargement of left ventricle cavity. Normal left ventricular wallthickness. Left ventricular systolic function at the lower limit of normal. Ejectionfraction is measured at 58 %. Left Atrium: The left atrium is normal in size. Right Ventricle: Moderate enlargement of right ventricle. Moderate right ventricularhypokinesis. Right Atrium: The right atrium is normal in size. Aortic Valve: Aortic valve not well visualized. No evidence of hemodynamicallysignificant aortic stenosis by Doppler. Mitral Valve: Normal structure of the mitral valve. Trivial regurgitation of the mitralvalve. Pulmonic Valve: Pulmonic valve not well visualized. Tricuspid Valve: Normal structure of the tricuspid valve. Estimated peak RVSP is 21 mmHg. Pericardium: Normal pericardium with no significant pericardial effusion. Aorta: Normal aortic root. IVC: Dilated inferior vena cava with poor inspiratory collapse consistent withelevated right atrial pressures. CONCLUSIONS: Mild enlargement of left ventricle cavity. Normal left ventricular wallthickness. Left ventricular systolic function at the lower limit of normal. Ejectionfraction is measured at 58 %. Indeterminate diastolic function. Moderate RV enlargement with hypokinesis. Normal structure of the mitral valve. Trivial regurgitation of the mitralvalve. Aortic valve not well visualized. No evidence of hemodynamicallysignificant aortic stenosis by Doppler. Estimated peak RVSP 21 mmHg. Atrial fibrillation. Electronically Signed By: Osmin Stewart MD, FACC 02/27/2025 8:58:41 PM CDT Caitie Lee NP CV ECHO PROCEDURES Final Result * [facility] Mobile Cardiac Telemetry Event Monitor (02/13/2025 12:47 PM CDT) Anatomical Region Laterality Modality Electrocardiogra phy 02/19/2025 11:5 9 PM CDT Narrative 02/24/2025 10:54 AM CDT [address] [address] EVENT MONITOR Patient Name: RICK FAY L : 1965 Study Date: 02/19/2025 11:59:00 PM Gender: M Tech: Ref Provider: ADITYA NGUYEN Height(Cm): BSA: Weight(Kg): Order Provider: CHRISTOPHER, ADITYA PROCEDURES: Event Report: Event Monitor Report. INDICATIONS: [...] Procedure Note Elpidio Romero MD - 02/24/[address] [address] EVENT MONITOR Patient Name: RICK FAY L [...] CDT) 02/03/2025 12:5 3 PM CDT Narrative [facility] - 02/03/2025 3:09 PM CDT Vent Rate: 51 bpm RR Interval: 1174 msec SC Interval: 0 msec QRS Duration: 109 msec QT Interval: 491 msec QTC Interval: 467 msec P-R-T [place]: [id number] - 44 - 50 degrees IMPRESSION: ATRIAL FIBRILLATION WITH SLOW VENTRICULAR RESPONSE POSSIBLE INFERIOR MYOCARDIAL INFARCTION , PROBABLY OLD [30 ms Q WAVE IN II/aVF] Peak T-waves. Consider hyperkalemia ABNORMAL RHYTHM ECG Electronically Signed By: Allen Talbot MD us Tyrone Patterson MD ECG ORDERABLES Final Result [facility] * EGD (02/03/2025 11:03 AM CDT) Anatomical Region Laterality Modality Other Narrative Procedure Note Michele Mauro, - 02/03/2025 11:03 AM CDT [facility] Patient Name: Rick Fay Procedure Date: 02/03/2025 11:03 AM Date of : 1965 Admit Type: Outpatient Age: 59 Gender: Male Attending MD: Michele Mauro D.O., Room: [facility] ENDOSCOPY ROOM 2 Note Status: Finalized [...] passed under direct vision. The Endoscope [id number] was introduced through the mouth, and advanced [...] 11:03 AM Procedure Code(s): --- Professional --- 42074, Esophagogastroduodenoscopy, flexible, transoral; with biopsy, single or multiple --- Technical --- 29231, Esophagogastroduodenoscopy, flexible, transoral; with biopsy, single or multiple Diagnosis Code(s): --- Professional --- K22.89, Other specified disease of esophagus K44.9, Diaphragmatic hernia without obstruction or gangrene K21.9, Gastro-esophageal reflux disease without esophagitis K20.0, Eosinophilic esophagitis --- Technical --- K22.89, Other specified disease of esophagus K44.9, Diaphragmatic hernia without obstruction or gangrene K21.9, Gastro-esophageal reflux disease without esophagitis K20.0, Eosinophilic esophagitis CPT copyright 2022 [employer]. All rights reserved. The codes documented in this report are preliminary and upon pipe line repairer reviewmay be revised to meet current compliance requirements. Recognized by the [employer] for promoting quality in endoscopy Michele Mauro DO ENDOSCOPY PROCEDURES Final Res ult * Surgical pathology (02/03/2025 9:02 AM CDT) Tissue (Esophageal biopsy) 02/03/2025 12:36 PM CDT Narrative PATHOLOGY [facility] - 02/05/2025 10:04 AM CDT EPIC results best viewed via link to PDF [facility] Department of Pathology [address] [place] [address] Note to Patients: This report may contain [...] Final Report Patient Name: RICK FAY Address: [address] [place] [address] Gender: M : 1965 (Age: 59) Service: Gastro Location: [facility] Hospital #: [id number] Patient Type: [facility] [address] Taken: 02/03/2025 Received: 02/04/2025 Accessioned: 02/04/2025 Reported: 02/05/2025 Physician(s):Dr. Michele Mauro, DJoseO. Diagnosis: Esophagus, biopsy: - Benign squamous epithelium [...] a single formalin filled container labeled RICK SUMEET and esophagus biopsies. It is 6 freeman tissue fragments between <1 and 1 mm. All in one cassette. Robinson Humphreys R.N., P.Aaron./Latasha Lujan M.D. REPORT IMAGES AND SCANNED DOCUMENTS, IF INCLUDED, ONLY VIEWABLE IN PDF VERSION OF REPORT The performance characteristics of some immunohistochemical stains, fluorescence in-situ hybridization tests and immunophenotyping by flow cytometry cited in this report (if any) were determined by the Surgical Pathology Department at [facility] [place] [facility] as part of an ongoing director software quality assurance program and in compliance with federally mandated [...] characteristics determined by the Surgical Pathology Department [facility]. It has not been cleared or approved by the U. S. Food and Drug Administration. Note for decalcified specimens: This assay has not been validated on decalcified tissues. Results should be interpreted with caution given the possibility of false negativity on decalcified specimens Michele Mauro DO LAB PATHOLOGY ORDERABLES Final Result PATHOLOGY [facility] [address] [place] [address] * PSA screen (10/02/2024 10:14 AM CDT) PSA 0.50 < OR = 4.00 ng/mL [facility] enmelaniea Comment: The total PSA value from this assay system is standardized against the WHO standard. The test result will be approximately 20% lower when compared to the equimolar-standardized total PSA ([place]). Comparison of serial PSA results should be [...] LAB BLOOD ORDERABLES Final Resul t [facility] [address] [facility] [place] [address] * COLONOSCOPY (07/15/2022 9:24 AM DESK EDITOR) Anatomical Region Laterality Modality Other Narrative Procedure Note Jno Braun MD - 07/15/2022 9:24 AM CST [facility] Patient Name: Rick Fay Procedure Date: 07/15/2022 9:24 AM Date of : 1965 Admit Type: Outpatient Age: 57 Gender: Male Attending MD: Jon Braun M.D. Room: [facility] ENDOSCOPY ROOM 2 Note Status: Finalized [...] scope was passed under direct vision. TheColonoscope [id number] was introduced through the anus and advanced [...] 9:24 AM Procedure Code(s): --- Professional --- 35119, Colonoscopy, flexible; with biopsy, single or multiple Diagnosis Code(s): --- Professional --- K52.9, Noninfective gastroenteritis and colitis, unspecified Z80.0, Family history of malignant neoplasm of digestive organs K64.9, Unspecified hemorrhoids CPT copyright 2020 [employer]. All rights reserved. The codes documented in this report are preliminary and upon pipe line repairer reviewmay be revised to meet current compliance requirements. Recognized by the [employer] for promoting quality in endoscopy Jon Braun MD ENDOSCOPY PROCEDURES Final Re sult * HEPATITIS C SCREENING (01/12/2012) HEP C Normal Historical Provider HEALTH MAINTENANCE Final Result from Last 3 Months or Most Recently Relevant to Health Maintenance [place] Advance Directives For more information, please contact: [phone] * Full Code (Latest Code Status on [...] 9:17 AM 07/15/2022 4:10 PM Care Teams Order Administrator Relationship Specialty Start Date End Date Aditya Nguyen NP [address] [place] [address] PCP - General Family Medicine 02/07/25
--- OUTSIDE RECORDS SUMMARY | 2025-03-25 08:10 | XMS_ITS | Encounter Summary ---
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 Gender Identity Not on file Sexual Orientation Not on file documented as of this encounter Miscellaneous Notes * Telephone Encounter - Britney Nielson - 03/14/2025 11:58 AM CDT CARDIOLOGY NEW PATIENT RECORDS REVIEW Insurance Information [employer] Insurance Provider: [place] Member ID: Group number: Diagnosis and Referring Provider Information (Check for Referrals in [facility]) Cardiac Diagnosis: afib Referring Provider: Astrid Hansen NP Referring Provider Specialty: Referring Provider Phone: Current/Former Director Of Program Management (if different from referring provider): Dr. Silva - [place], [place] Current/Former Director Of Program Management Phone: Questions to Determine Placement for Specialty Clinics Cardiology-Oncology Are you actively undergoing cancer treatments including radiation, chemotherapy, or immunotherapy or is this planned in the future?: no - Skin Cancer on leg - no treatments - surgery to remove When: 2024 Where: [facility] in [place], name unknown Congenital Is this a heart condition that has existed since : no Maternal- Cardiology (Females Only) Are you or had a baby in the past year: no Sports Medicine Do you regularly exercise or play sports: yes - ride, mountain bike, 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, 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 Are the symptoms or concerns associated with acviity: yes - less mobile, Hypertension (If yes, must be referred by MD) Are you a hemodialysis or peritoneal dialysis patient: no Referring provider: Cardiology History Questions Have you been hospitalized for cardiac issues: no When: Where: Have you had an echo: yes When: 02/27/2025 Where: [facility], [place], [place] Have you had a stress test: no When: Where: Have you had an EKG: yes When: 01/2025 Where: [place], [place] Have you had a holter monitor: yes - 7 Days When: 02/2025 Where:Ordered by pcp Have you had cardiac imaging(CT or MRI): no Testing/imaging: When: Where: Have you had any procedures (cath, CABG, cardioversion, or ablation): no When: Where: Have you had a sleep study done: no - but scheduled for one in When: Where: [facility] Of Program Management ordered, unsure of where to be done Do you have an implantable cardiac device: no Type: Store Management Trainee: When: Where: Appointment Details Date: 05/29/25 Time:3:30 pm Location:[facility] Provider: Mony documented in this encounter Plan of Treatment Not on file documented as of this encounter Visit Diagnoses Not on filedocumented in this encounter Care Teams Volumetric Weigher Relationship Specialty Start Date End Date Astrid Hansen NP [address] [facility] [address] [address] PCP - General Family Medicine 02/07/25 documented as of this encounter
--- NOTE | 2025-04-14 12:11 | WPDHOMESLEEP ---
Sleep Study - Home Unattended Date of Study: 03/25/25 Ordering Provider: Rhys Godinez MD Interpreting Provider: Lea Malhotra MD Home Sleep Study Type: Watch PAT Height: 1.88 m Weight: 81.647 kg Body Mass Index: 23.1 Neck Circumference (inches): 14.5 [place]: 8 Reason for Sleep Study Loud snoring, atrial fibrillation * 09/16/2013 - PSG negative for obstructive sleep apnea; AHI 2.7, lowest saturation 90%. Sleep History Rick Fay is a 59-year-old man with atrial fibrillation. He had an in-lab polysomnogram 09/16/2013 which was negative for sleep disordered breathing, AHI was 2.7 with lowest saturation 90%. He had the same complaints at the time that he has now including loud snoring, gasping for air at night, restless sensation in his legs, non-restorative sleep, and daytime sleepiness. He does not have morning headaches. nocturnal heartburn or nocturia. He wakes with a dry mouth. He has difficulty remaining asleep throughout the night. He clenches his teeth during the night. He does not feel refreshed on waking. He has more difficulty breathing when he sleeps on his back. He is pohysically active, exercises 3-4 times per week. His insomnia severity index is 11 consistent with subthreshold insomnia. Orlando is 8, in the normal range. Normal bedtime is 9:00 p.m.taking an hour to fall asleep, spending 7 hours in bed, 5 hours asleep. He is not refreshed on waking, He does not act out his dreams. 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 Gender identity (if verbalized by the patient): Male Medications Home Medications ?Medication ?Instructions ?Recorded ?Confirmed ?Type cholestyramine (with sugar) 4 gram DAILY 12/03/19 03/18/25 History powder for susp in a packet olanzapine 2.5 mg tablet mg DAILY 12/03/19 03/18/25 History oxcarbazepine 150 mg tablet 150 mg PO BID 12/03/19 03/18/25 History (Trileptal) sertraline 100 mg tablet mg DAILY 12/03/19 03/18/25 History apixaban 5 mg tablet (Eliquis) 5 mg PO 03/18/25 03/18/25 History flecainide 50 mg tablet 50 mg PO BID 03/18/25 03/18/25 History Sleep Procedure The sleep study was completed using BuyerMLSPAT a technically adequate device with seven channels: peripheral arterial tone, actigraphy, body position, snore, respiratory movement, pulse oximetry, sleep staging, and heart rate. Prior to using the device, the patient received verbal and written instructions for its application and was provided with the help desk phone number for additional telephonic instruction with 24-hour availability of qualified personnel to answer questions. Sleep Architecture The total recording time is 8 hrs, 47 min. The total sleep time is 7 hrs, 45 min. Sleep latency is 16 minutes. REM latency is 70 minutes. The patient had 11 episodes of waking. Sleep architecture shows 16.4% deep sleep, 56.9% light sleep, and 26.6% stage REM. The patient spent 51.6% of total sleep time in the supine position. Sleep efficiency was 88%. Respiratory Analysis The overall AHI (pAHI 3%:) is 4.4. The central AHI is 0.0. The AHI was 4.1 in NREM and 5.4 in REM sleep. The AHI was 5.3 in Supine and 3.5 in Non-supine sleep. Percent of Zeyad Bar respirations is 0.0. Oximetry Data The oxygen desaturation index (ELÍAS 4%:) is 1.6. The mean saturation is 95%, and the lowest saturation is 90%. Time spent with saturation < 88% is 0.0 minutes. Snoring Profile Snoring average intensity is 43 dB. The patient snored above 45 decibels for 127.4 minutes, 27.4% of sleep time. Cardiac Profile The average pulse rate is 57 beats per minutes. The lowest pulse rate is 44 bpm. The highest pulse rate is 98 bpm. Cardiac Rhythm Analysis in Sleep did not detect atrial fibrillation. Assessment and Plan Assessment and Plan (1) Snoring: Code(s): R06.83 - Snoring Status: Acute Assessment and Plan: This home sleep test using WatchPat on 03/25/2025 shows loud snoring without evidence of sleep disordered breathing. The apnea hypopnea index using 3% criteria is 4.4, normal, and the lowest saturation is 905, similar to his results from an in-lab study in 2013. He did not have atrial fibrillation detected by the cardiac rhythm analysis. He had premature beats detected at 0.4 per hour. Events were slightly higher in the supine position, supine AHI 5.3, non-supine AHI 3.5. He spent half the night in the supine position. He may benefit from avoiding supine sleep using pillows on his back and stimach to maintain sleep in the lateral position. He is not overweight. He may benefit from Breathe Right nasal strips, nasal steroids and/or nasal antihistamine for snoring. Data The data obtained during this sleep study is adequate for interpretation. Certification This sleep study has been reviewed by a board certified sleep medicine physician.
[2025-04-15 09:15] VITALS: BMI 23.1
== END 2025-03-26 10:16 | disposition home or self-care (01) ==
LOC: ANHCSM 08:08
PROVIDERS: Visit Provider Internal Medicine Cardiovascular Disease
DX: R06.83 Snoring (principal); G47.33 Obstructive sleep apnea (adult) (pediatric)
CPT/HCPCS: 95800